=== PATIENT | female | born 1970 | race Caucasian/White ===

== ENCOUNTER 2017-01-29 11:05 | Day surgery (SDC) | payer BC, OTHER ==
[2017-01-22 07:55] VITALS: BMI 35.0
[~2017-01-29] VITALS: Ht 175.3 cm; Wt 108.2 kg
[~2017-01-29 11:05] MED LIST: AMLO-114 PO; ASCA500 PO; ATV1HP PO; CALC600T37 PO; CHOL1000 PO; CRFL PO; CYAN100020 PO; ESZO1TAB16 PO; EVEN1000 PO; LACTATED RINGER'S 1000ML 1,000 ML IV SCH; LISD60CA PO; MULT-506 PO; PRT/20 PO; QUET1TAB30 PO; VITA1TAB4 PO
[2017-01-29 11:37] VITALS: BP 126/70; PULSE 71; TEMP 36.9; O2SAT 98; Ht 175.3 cm; Wt 108.2 kg
[2017-01-29] MEDS ORDERED: FENTANYL CITRATE INJ 50 MCG/1 ML 2 ML VIAL ONE (12:41)
[2017-01-29] MEDS ORDERED: MIDAZOLAM HCL 1 MG/ML 2ML VIAL ONE (12:41)
[2017-01-29] MEDS ORDERED: ONDANSETRON INJ 2 MG/ML 2 ML VIAL IV STA (12:42)
[2017-01-29] MEDS ORDERED: ONDANSETRON INJ 2 MG/ML 2 ML VIAL ONE (12:42)
[2017-01-29] MEDS ORDERED: EpHEDrine SULFATE INJ 50 MG/ML AMP IV PRN (12:45)
[2017-01-29] MEDS ORDERED: ATROPINE SULFATE 0.1 MG/ML 5ML SYR IV PRN (12:45)
[2017-01-29] MEDS ORDERED: PROMETHAZINE HCL INJ 6.25 MG in SODIUM CHLORIDE 0.9% 50ML 50 ML IV PRN (12:45)
[2017-01-29] MEDS ORDERED: ONDANSETRON INJ 2 MG/ML 2 ML VIAL IV PRN ×2 (12:45→13:45)
--- NOTE | 2017-01-29 13:13 | History and Physical ---
History & Physical Date Jan 29, 2017. Chief Complaint pt years s/p gastric bypass for morbid obesity. has had an issue with chronic ulcers. was found several weeks ago with another ulcer and was considering reversal of her bypass b/c of recurrent ulcers. she wants my second opinion. she is having difficulty eating most days. lives on soft foods. frequent epigastric pain. 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 History of Present Illness The patient is a 46 year old female with complaints of Additional History Hypertension: Yes Heart Disease: Yes (arrythmia) Allergies Coded Allergies: Benzonatate (Verified Allergy, Severe, ANAPHYLACTIC SHOCK, 01/29/17) Morphine (Verified Allergy, Severe, ANAPHYLACTIC SHOCK, 01/29/17) Fentanyl (Verified Allergy, Intermediate, EXCESSIVE GI UPSET, 01/29/17) Latex1 -Allergic Contact Dermititis (Verified Allergy, Intermediate, REDNESS, BLISTERS, RASH, 01/29/17) Home Medications Scheduled Amlodipine (Norvasc), 10 MG PO QPM Ascorbic Acid (Vitamin C), 500 MG PO BID Calcium (Calcium), 600 MG PO BID Cholecalciferol (Vitamin D3), 1,000 UNIT PO BID Cyanocobalamin (Vitamin B12), 1,000 MCG PO BID Evening [place] Oil (Evening [place] Oil), 1 CAP PO QPM Lisdexamfetamine Dimesylate (Vyvanse), 60 MG PO QAM Multivitamin (Multivitamin), 1 TAB PO BID Pantoprazole (Protonix), 20 MG PO QAM Quetiapine Fumarate (Seroquel), 25 MG PO HS Sucralfate (Carafate), 10 ML PO BID Vitamin E (Vitamin E), 400 UNIT PO BID Scheduled PRN Eszopiclone (Lunesta), 3 MG PO HS PRN for Sleep Lorazepam (Lorazepam), 1 MG PO TID PRN for Anxiety Physical Examination Skin: warm/dry, no rash Eyes: EOMI, sclerae normal ENT: normal ENT inspection Head: normocephalic Neck: supple, no adenopathy, trachea midline Respiratory/Chest: normal breath sounds, no respiratory distress Cardiovascular: regular rate, rhythm Abdomen / GI: normal bowel sounds, + pertinent finding (+epigstric ttp) Extremities: normal inspection Diagnosis recurrent marginal ulcer agree reversal may help her will need to eval pouch size to see if reversal is even possible considering her multiple gastric surgeries cont carafate/protonix for now.
[2017-01-29] MEDS ORDERED: LIDOCAINE HCL 2% 2 ML VIAL (20MG/ML) ONE (13:22)
[2017-01-29] MEDS ORDERED: PROPOFOL IV EMULSION 10 MG/ML 20 ML VIAL IV ONE (13:22)
[2017-01-29] MEDS ORDERED: SODIUM CHLORIDE 0.9% 1000ML 1,000 ML IV SCH (13:37)
--- NOTE | 2017-01-29 13:42 | Discharge Instructions ---
Discharge Instructions Date of Service Jan 29, 2017. Admission Reason for Admission: Gastric Ulcers, History of Paulina-En-Y Gastric Bypas Discharge Discharge Diagnosis / Problem: marginal ulcers;recurrent Discharge Goals Goal(s): Decrease discomfort, Learn about illness, Diagnostic testing Activity Recommendations Activity Limitations: resume your previous activity Lifting Limitations: none . Current Hospital Diet Patient's current hospital diet: Discharge Diet Recommended Diet: Regular Diet Procedures Procedures Performed: Esophagogastroduodenoscopy Pending Studies Studies pending at discharge: no Medical Emergencies . Who to Call and When: Medical Emergencies: If at any time you feel your situation is an emergency, please call 911 immediately. . Non-Emergent Contact Non-Emergency issues call your: Primary Care Provider, Surgeon . "Provider Documentation" section prepared by Victor Manuel Arnold. . VTE Core Measure Inpt VTE Proph given/why not?: Treatment not indicated
--- NOTE | 2017-01-29 13:46 | [facility] Operative Report ---
Operative Report Operative Date Jan 29, 2017. Pre-Operative Diagnosis recurrent marginal ulcer Post-Operative Diagnosis recurrent marginal ulcer Procedure(s) Performed Esophagogastroduodenoscopy Surgeon Dr. Arnold Road Mender Surgeon(s) none Estimated Blood Loss 0 ml Findings small gastric pouch;marginal ulcer encompassing approx 50 % of anastomosis Specimens all specimens handled by endo staff Complication(s) None Disposition Recovery Room / PACU Description of Procedure After informed consent was obtained the patient was taken to the operating room and placed in supine position. IV sedation was administered and the patient was then placed in a left lateral Fowlers position. A bite block was placed. The gastroscope was inserted into the oropharynx and the proximal esophagus without difficulty. Keeping the lumen in view at all times the scope was passed down and the patient's gastric pouch. Anastomosis was open I was able go through it into the Paulina limb for about 15-20 cm. There was a moderate sized long blind limb. There was no stricture but there were 2 penetrating ulcers encompassing about 50% of the circumference of the anastomosis. No other gross abnormalities were identified. Esophagus appeared normal. The pouch was small but I do believe it would be possible to reverse her bypass. I decompressed the pouch withdrew the scope. The patient was awaken and transferred recovery in stable condition I attest to the content of the Intraoperative Record and any orders documented therein. Any exceptions are noted below.
--- NOTE | 2017-01-29 14:15 | Anesthesiology Progress Note ---
Anesthesia Post Op Note Date & Time Jan 29, 2017 at 14:15 Vital Signs Pain Intensity: 2 Vital Signs Past 12 Hours Date Time Temp Pulse Resp B/P (MAP) Pulse Ox O2 Delivery O2 Flow Rate FiO2 01/29/17 14:00 71 15 122/85 97 Room Air 01/29/17 13:50 75 18 127/91 95 Room Air 01/29/17 13:40 36.2 84 16 122/66 98 Oxymask 4 01/29/17 11:37 36.9 71 18 126/70 (88) 98 Room Air Notes Mental Status: alert / awake / arousable, participated in evaluation Pt Amnestic to Procedure: Yes Nausea / Vomiting: adequately controlled Pain: adequately controlled Airway Patency, RR, SpO2: stable & adequate BP & HR: stable & adequate Hydration State: stable & adequate Anesthetic Complications: no major complications apparent
[2017-01-29 14:25] VITALS: BP 118/67; PULSE 77; TEMP 36.9; O2SAT 96
[2017-01-29 14:55] VITALS: BP 120/79; PULSE 74; O2SAT 98
== END 2017-01-29 15:20 | disposition home or self-care (01) ==
LOC: C.ACU 11:05
PROVIDERS: ATTEND Surgery
DX: K25.3 Acute gastric ulcer without hemorrhage or perforation (principal); Z98.84 Bariatric surgery status; Z79.899 Other long term (current) drug therapy

== ENCOUNTER 2017-04-25 05:17 | Inpatient (IN) | payer BC ==
[2017-04-02 08:21] VITALS: BMI 32.0
[~2017-04-25] VITALS: Ht 177.8 cm; Wt 100.9 kg
[2017-04-25] VITALS (11 sets, daily range): BP systolic 111–175; BP diastolic 71–91; PULSE 61–86; TEMP 36.5–37; O2SAT 94–100; Ht 177.8 cm; Wt 100.9 kg
[~2017-04-25 05:17] MED LIST changes: +FERR325T5 PO; -LACTATED RINGER'S 1000ML 1,000 ML IV SCH; +VNTHFA/IN INH
[2017-04-25] MEDS ORDERED: HEPARIN SOD 5000 UNIT/0.5 ML CARP SQ SCH (06:00)
[2017-04-25] MEDS ORDERED: CEFAZOLIN 2000MG IV PUSH 15 ML IV SCH (06:00)
[2017-04-25] MEDS ORDERED: LACTATED RINGER'S 1000ML 1,000 ML IV SCH (06:00)
[2017-04-25] MEDS ORDERED: BUPIVACAINE/EPINEPHRINE 0.5% MPF 1:200,000 30 ML VIAL ONE (06:32)
[2017-04-25] MEDS: LACTATED RINGER'S 1000ML 1,000 ML IV SCH ×4 (06:33→23:56)
--- NOTE | 2017-04-25 06:51 | History & Physical Bridge Note ---
H&P Re-Evaluation Bridge Note: I have examined the patient, reviewed the History & Physical and in the interval since the performance of the History & Physical I have noted the following changes of clinical significance: No changes noted
[2017-04-25] MEDS ORDERED: FENTANYL CITRATE INJ 50 MCG/1 ML 2 ML VIAL ONE ×4 (06:52→10:33)
[2017-04-25] MEDS ORDERED: MIDAZOLAM HCL 1 MG/ML 2ML VIAL ONE (06:52)
[2017-04-25] MEDS ORDERED: PROPOFOL IV EMULSION 10 MG/ML 20 ML VIAL IV ONE (06:52)
[2017-04-25] MEDS ORDERED: ROCURONIUM BROMIDE 10 MG/ML 5 ML VIAL IV ONE ×2 (06:52→08:03)
[2017-04-25] MEDS ORDERED: LIDOCAINE HCL 2% 2 ML VIAL (20MG/ML) ONE (06:52)
[2017-04-25] MEDS ORDERED: ONDANSETRON INJ 2 MG/ML 2 ML VIAL ONE (08:03)
[2017-04-25] MEDS ORDERED: DEXAMETHASONE SOD INJ 4 MG/ML VIAL ONE (08:03)
[2017-04-25] MEDS ORDERED: HYDROmorphone INJ 2 MG/ML SYR/VIAL ONE ×2 (08:25→11:14)
[2017-04-25] MEDS ORDERED: ONDANSETRON INJ 2 MG/ML 2 ML VIAL IV PRN ×2 (10:15→11:45)
[2017-04-25] MEDS ORDERED: NALOXONE HCL 0.4 MG/1 ML VIAL/CARP IV PRN (10:15)
[2017-04-25] MEDS ORDERED: LABETALOL HCL IV 5 MG/ML 20ML IV PRN (10:15)
[2017-04-25] MEDS ORDERED: EpHEDrine SULFATE INJ 50 MG/ML AMP IV PRN (10:15)
[2017-04-25] MEDS ORDERED: FLUMAZENIL 0.1 MG/1 ML 10 ML VIAL IV PRN (10:15)
[2017-04-25] MEDS ORDERED: PROMETHAZINE HCL INJ 12.5 MG in SODIUM CHLORIDE 0.9% 50ML 50 ML IV PRN (10:15)
[2017-04-25] MEDS ORDERED: ATROPINE SULFATE 0.1 MG/ML 5ML SYR IV PRN (10:15)
[2017-04-25] MEDS ORDERED: SODIUM CHLORIDE 0.9% INJ 10 ML VIAL ONE (10:22)
[2017-04-25] MEDS ORDERED: KETAMINE HCL INJ 50 MG/ML 10 ML VIAL ONE (10:38)
--- NOTE | 2017-04-25 11:22 | [facility] Operative Report ---
Operative Report Operative Date Apr 25, 2017. Pre-Operative Diagnosis Recurrent marginal Ulcer Post-Operative Diagnosis Recurrent marginal Ulcer;gastroenteric fistula;adhesions Procedure(s) Performed Laparoscopic Revision/Reversal of Gastrojejunostomy; gastrogastrostomy; takedown of gastroenteric fistula; enteroenterostomy;partial small bowel resection; enterolysis; Intra-operative Esophagogastroduodenoscopy Surgeon Dr Arnold Manufacturing Associate Surgeon(s) Mathieu Luna PA-C Estimated Blood Loss 30CC Specimens None per surgeon Anesthesia Type General Complication(s) staple line/anastomotic leak intra-op I attest to the content of the Intraoperative Record and any orders documented therein. Any exceptions are noted below.
--- NOTE | 2017-04-25 11:35 | Medical Student: [facility] ---
Immediate Operative Summary Operative Date Apr 25, 2017. Pre-Operative Diagnosis recurrent marginal ulcer Post-Operative Diagnosis recurrent marginal ulcer, gastoenteric fistula, adhesions Procedure(s) Performed Laparoscopic revision/reversal of gastrojejunostomy with intra-operative EGD and partial bowel resection; removal of gastroenteric fistula; gastrogastrostomy, enteroenterostomy, enterolysis Surgeon Dr. Arnold Computer Typesetter Keyliner Surgeon(s) Mathieu Luna PA-C Estimated Blood Loss 30cc Findings previous Paulina-en-Y gastric bypass, adhesions, marginal ulcer Specimens A: portion of stomach B: portion of small bowel None sent to path per Dr. Arnold Drains 10 flat MELLY in LUQ Anesthesia general Complication(s) leak at 1 staple line and at anastomosis of stomach intraoperatively. Disposition Recovery Room / PACU
[2017-04-25] MEDS ORDERED: ESZOPICLONE 3 MG TAB PO PRN (11:45)
[2017-04-25] MEDS ORDERED: HYDROmorphone INJ 1 MG/ML SYR IV PRN (11:45)
[2017-04-25] MEDS ORDERED: ALBUTEROL HFA 8 GM INHALER INH PRN (11:45)
[2017-04-25] MEDS ORDERED: LORAZEPAM 2 MG/ML 1 ML VIAL IV PRN (11:45)
[2017-04-25] MEDS: HYDROmorphone INJ 1 MG/ML SYR IV PRN ×5 (11:54→13:22)
--- NOTE | 2017-04-25 12:18 | [facility] Operative Report ---
Operative Report Operative Date Apr 25, 2017. Pre-Operative Diagnosis recurrent marginal ulcers Post-Operative Diagnosis same with gastroenteric fistula; adhesions Procedure(s) Performed Laparoscopic Revision/Reversal of Gastrojejunostomy; gastrogastrostomy;takedown of gastroenteric fistula; enteroenterostomy;partial small bowelresection; enterolysis; Intra-operativeEsophagogastroduodenoscopy Surgeon Dr Arnold Mobile Equipment Servicer Surgeon(s) Mathieu Luna PA-C Estimated Blood Loss 30CC Specimens A. Portion of Stomach B. Portion of Small Bowel Drains 10 flat MELLY in LUQ Anesthesia Type General Complication(s) staple line/anastomotic leak intra-op Disposition Recovery Room / PACU Description of Procedure After informed consent was obtained the patient was taken to the operating room placed in supine position. After successful intubation a Love catheter was placed and the abdomen was sterilely prepped and draped in usual fashion. A supraumbilical incision through an old scar line was made with an 11 blade scalpel and carried down through the soft tissue using electrocautery. The anterior rectus fascia was opened using electrocautery and 2 #0 Vicryl stay sutures were placed. Peritoneum was elevated with hemostats and incised under direct vision using a Metzenbaum scissor. A finger sweep was performed. A 12 mm Vang trocar was placed and the abdomen was insufflated to 20 mmHg. The laparoscope was inserted and the abdomen examined 360. A subxiphoid 12 mm port which would later be converted to a 15 mm port, a right upper quadrant 12 mm port a right midabdominal 12 mm port and a left upper quadrant 12 mm port were all placed under direct vision. Considering her surgical history her anatomy was actually quite good. We used a liver retractor throughout the majority of the procedure. I was able to readily follow the Paulina limb up to the gastrojejunal anastomosis. It was however kinked in an abnormal fashion. 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 Nonetheless there was enough stomach remaining that I would be able to perform the gastrogastrostomy. I began by taking down adhesions in the upper abdomen involving the stomach small bowel. His was done using scissor lysis as well as Harmonic. Once we had freed up the stomach pouch I then initially attempted to use a purple cartridge stapler to transect the stomach proximal to the anastomosis. The tissue however was too thick. I converted to a black cartridge and was able to transect the stomach just proximal to her previous gastrojejunostomy. Once I had a completely stapled it off I then mobilized the Paulina limb and placed it in the left upper quadrant. Next we freed up the remaining gastric remnant. She did have her fundus resected previously so we basically had the distal part of the body and antrum remaining. Once I freed this up we were able to mobilize it enough to bring it up into the left upper quadrant near her gastric pouch. I sutured it with 2-0 vicryl to the gastric pouch to take tension off it. We then connected the anvil of the 21 mm circular stapler to an NG tube and anesthesia pass the tube into the gastric pouch. A small gastrotomy was made and I used the NG tube the pull the anvil down into the pouch. I disconnected the NG tube from the anvil, pulled it from the abdomen and discarded it. We then made a gastrotomy in the gastric remnant. We brought the handle of the EEA in through the left upper quadrant incision after extending it. We placed the handle into the gastrotomy and deployed the spike out through the lesser curvature side of the remaining stomach. The handle was connected to the anvil they were secured together and fired creating a circular gastro-gastric anastomosis. After removing the handle we were then able to staple off the gastrotomy using a DANISHA purple cartridge stapler. At the end of the case we did perform a methylene blue dye test which unfortunately did show 2 areas of leakage 1 at the anastomosis and one at one of the staple lines. both were anterior and were able to be easily oversewn using 2-0 Tycron in simple interrupted fashion. Once we had the small anastomotic area oversewn as well as the staple line we then retested it multiple times with methylene blue and at this point it was completely airtight with no evidence of leaking. We did cover the anastomosis as well as the staple lines with Tisseel glue. I then ran the Paulina limb down to the jejunojejunostomy. I was able to disconnect the biliary limb using a DANISHA peterson cartridge stapler. I then resected the proximal portion of the Paulina limb since it was still connected to the stomach as well as a blind limb. I used the Harmonic scalpel to take down the mesentery and set this portion of small bowel in the left upper quadrant along with the portion of stomach that was stapled off previously. I then performed a laparoscopic jejunojejunostomy from the proximal Paulina limb to the biliary limb. We closed the common enterotomy also using a DANISHA peterson stapler. I used 2- [address] a crotch stitch and also used 2-0 Tycron in simple interrupted fashion to close the mesenteric defect. The anastomosis looked good and tension free without any ischemia. At the end of the case both anastomosis were free of any leaks were intact without signs of ischemia. We did do a thorough irrigation of the upper abdomen. A 10 flat Eleazar-Williamson drain was placed in the left upper quadrant and brought out through a left upper quadrant incision. The fascia of that incision was also closed using 0 Vicryl with a fascial closure device. No other abnormalities were identified. An Endo Catch bag was placed and all 3 disposable portions of stomach and small bowel were placed into it and they were removed from the abdomen. We removed all the trochars and desufflated the abdomen. The fascia the camera port was closed using 0 Vicryl [id number] fashion. All the wounds were irrigated and closed using 4-0 Monocryl. Marcaine was injected around him for postoperative analgesia and skin glue used as a dressing. Patient was awaken extubated and transferred recovery in stable condition. My physician's geriatric assistant was present throughout the entire entire case. He helped with prepping the patient trocar placement he assisted with retraction ran the camera helped with wound closure and dressing placement the end of the case. He was an integral part of the procedure. I attest to the content of the Intraoperative Record and any orders documented therein. Any exceptions are noted below.
--- NOTE | 2017-04-25 12:48 | Anesthesiology Progress Note ---
Anesthesia Post Op Note Date & Time Apr 25, 2017 at 12:48 Vital Signs Pain Intensity: 4 Vital Signs Past 12 Hours Date Time Temp Pulse Resp B/P (MAP) Pulse Ox O2 Delivery O2 Flow Rate FiO2 04/25/17 12:30 36.2 70 20 148/82 98 Nasal Cannula 4 04/25/17 12:15 76 20 158/97 98 Nasal Cannula 4 04/25/17 12:05 78 20 138/98 100 Oxymask 10 04/25/17 11:55 90 20 160/101 100 Oxymask 10 04/25/17 11:45 92 20 161/83 100 Oxymask 10 04/25/17 11:39 36.6 102 20 122/58 100 Oxymask 10 04/25/17 05:56 36.6 77 18 156/77 99 Room Air Notes Mental Status: alert / awake / arousable, participated in evaluation Pt Amnestic to Procedure: Yes Nausea / Vomiting: adequately controlled Pain: adequately controlled Airway Patency, RR, SpO2: stable & adequate BP & HR: stable & adequate Hydration State: stable & adequate Anesthetic Complications: no major complications apparent
[2017-04-25] MEDS ORDERED: NURSING VERBAL MED ORDER ONE ×3 (13:00→16:45)
[2017-04-25] MEDS ORDERED: ONDANSETRON INJ 2 MG/ML 2 ML VIAL IV STA (13:08)
[2017-04-25] MEDS ORDERED: SCOPOLAMINE 1.5 MG TDSY TD ONE (13:15)
[2017-04-25] MEDS ORDERED: HYDROmorphone INJ 1 MG/ML SYR ONE (13:15)
[2017-04-25] MEDS: ACETAMINOPHEN IV 100 ML IV SCH ×2 (14:08→22:03)
[2017-04-25] MEDS: SODIUM CHLORIDE 0.9% 1000ML 1,000 ML IV SCH (15:30)
[2017-04-25] MEDS: VYVANSE: ORDER AWAITING ACTION SCH ×2 (16:00→23:54)
[2017-04-25] MEDS: CHECK SCOPOLAMINE PATCH PLACEMENT SCH ×2 (16:28→23:54)
[2017-04-25] MEDS ORDERED: HYDROmorphone INJ 1 MG/ML SYR IV STA (16:31)
[2017-04-25] MEDS ORDERED: HYDROmorphone INJ 2 MG/ML SYR/VIAL IV STA (16:42)
[2017-04-25] MEDS: HYDROmorphone HCL 0.5MG/ML 50 ML CASSETTE IV PRN ×2 (17:25→23:04)
[2017-04-25] MEDS: DiphenhydrAMINE HCL 50 MG/ML VIAL IV PRN (19:43)
[2017-04-25] MEDS: LORAZEPAM INJ 1 MG in SYRINGE 0.5 ML IV PRN (20:34)
[2017-04-25] MEDS: QUETIAPINE FUMARATE 25 MG TAB PO SCH (20:37)
[2017-04-25] MEDS: AMLODIPINE BESYLATE 5 MG TAB PO SCH (20:38)
[2017-04-26] VITALS (10 sets, daily range): BP systolic 132–176; BP diastolic 70–93; PULSE 60–92; TEMP 36.8–37.8; O2SAT 91–98
[2017-04-26 05:51] LABS: BASO % 0.2 %; BASO ABS # 0.03 K/uL (0-0.2); EOS % 0.7 %; EOS ABS # 0.09 K/uL (0-0.5); HEMOGLOBIN 11.3 g/dL (12.0-16.0); IG# 0.03 K/uL (0.00-0.02); LYMPH % 17.3 %; MEAN CELL VOLUME 88.8 fL (80-100); MEAN CORPUSCULAR HEMOGLOBIN 29.5 pg (25-34); MEAN CORPUSCULAR HGB CONC 33.2 g/dl (32-36); MEAN PLATELET VOLUME 11.2 fL (7.4-10.4); MONO % 6.2 %; MONO ABS # 0.75 K/uL (0.11-0.59); NEUT % 75.4 %; NEUT ABS # 9.12 K/uL (1.4-6.5); PLATELET COUNT 221 K/uL (130-400); RED CELL DISTRIBUTION WIDTH SD 45.3 fL (36.4-46.3); WHITE BLOOD COUNT 12.12 K/uL (4.8-10.8)
[2017-04-26] MEDS: ACETAMINOPHEN IV 100 ML IV SCH (05:51)
[2017-04-26 05:54] LABS: INR 1.1 (0.9-1.1); PTT PATIENT 24.9 SECONDS (21.0-31.0)
[2017-04-26 06:15] LABS: CALCIUM 8.3 mg/dl (8.5-10.1); CREATININE 0.52 mg/dl (0.60-1.20); POTASSIUM 3.4 mmol/L (3.5-5.1)
[2017-04-26] MEDS: VYVANSE: ORDER AWAITING ACTION SCH ×3 (07:38→23:42)
[2017-04-26] MEDS: CHECK SCOPOLAMINE PATCH PLACEMENT SCH ×3 (07:38→23:41)
[2017-04-26] MEDS: LACTATED RINGER'S 1000ML 1,000 ML IV SCH (07:38)
[2017-04-26] MEDS: PANTOprazole SOD 40 MG TAB PO SCH (09:02)
[2017-04-26] MEDS: ENOXAPARIN 40 MG/0.4 ML SYR SQ SCH (09:03)
[2017-04-26] MEDS: D5W AND 1/2NSS + 20MEQ KCL 1,000 ML IV SCH ×2 (10:00→17:52)
--- NOTE | 2017-04-26 11:17 | Anesthesiology Progress Note ---
Anesthesia Post Op Note Date & Time Apr 26, 2017 at 11:16 Vital Signs Pain Intensity: 8.0 Vital Signs Past 12 Hours Date Time Temp Pulse Resp B/P (MAP) Pulse Ox O2 Delivery O2 Flow Rate FiO2 04/26/17 08:00 Room Air 04/26/17 07:59 36.8 60 17 152/70 (97) 91 Room Air 04/26/17 04:03 37.0 71 14 155/84 (107) 95 Room Air 04/25/17 23:45 Room Air Notes Mental Status: alert / awake / arousable, participated in evaluation Pt Amnestic to Procedure: Yes Nausea / Vomiting: adequately controlled Pain: adequately controlled Airway Patency, RR, SpO2: stable & adequate BP & HR: stable & adequate Hydration State: stable & adequate Anesthetic Complications: no major complications apparent
[2017-04-26] MEDS: DiphenhydrAMINE HCL 50 MG/ML VIAL IV PRN ×2 (11:58→18:37)
--- NOTE | 2017-04-26 13:58 | Surgery Progress Note ---
Surgery Progress Note Date of Service Apr 26, 2017. Subjective Post OP Day: 1 + ambulating, + pain controlled (better), + using SHELL WORKER Objective Vital Signs: Date Time Temp Pulse Resp B/P (MAP) Pulse Ox O2 Delivery O2 Flow Rate FiO2 04/26/17 11:46 37.3 76 17 132/81 (98) 95 Room Air 04/26/17 08:00 Room Air 04/26/17 07:59 36.8 60 17 152/70 (97) 91 Room Air 04/26/17 04:03 37.0 71 14 155/84 (107) 95 Room Air 04/25/17 23:45 Room Air 04/25/17 23:16 36.9 61 14 129/74 (92) 94 Room Air 04/25/17 21:29 36.9 71 18 175/79 (111) 97 Room Air 04/25/17 20:30 37.0 70 18 147/91 (109) 95 Room Air 04/25/17 19:30 37.0 86 20 145/73 (97) 96 Room Air 04/25/17 18:30 36.9 84 18 146/78 (100) 96 Room Air 04/25/17 16:00 Nasal Cannula 2.0 04/25/17 15:42 36.5 74 18 138/84 (102) 98 Nasal Cannula 3.0 04/25/17 14:44 70 18 148/79 (102) 98 Nasal Cannula 2.0 Physical Exam: MELLY drainage (70 cc) Abdomen: soft Incision(s): intact (dressing) Laboratory Results: Results Past 24 Hours Test 04/26/17 05:24 Range/Units White Blood Count 12.12 4.8-10.8 K/uL Red Blood Count 3.83 4.2-5.4 M/uL Hemoglobin 11.3 12.0-16.0 g/dL Hematocrit 34.0 37-47 % Mean Corpuscular Volume 88.8 80-100 fL Mean Corpuscular Hemoglobin 29.5 25-34 pg Mean Corpuscular Hemoglobin Concent 33.2 32-36 g/dl Platelet Count 221 130-400 K/uL Mean Platelet Volume 11.2 7.4-10.4 fL Neutrophils (%) (Auto) 75.4 % Lymphocytes (%) (Auto) 17.3 % Monocytes (%) (Auto) 6.2 % Eosinophils (%) (Auto) 0.7 % Basophils (%) (Auto) 0.2 % Neutrophils # (Auto) 9.12 1.4-6.5 K/uL Lymphocytes # (Auto) 2.10 1.2-3.4 K/uL Monocytes # (Auto) 0.75 0.11-0.59 K/uL Eosinophils # (Auto) 0.09 0-0.5 K/uL Basophils # (Auto) 0.03 0-0.2 K/uL RDW Standard Deviation 45.3 36.4-46.3 fL RDW Coefficient of Variation 14.0 11.5-14.5 % Immature Granulocyte % (Auto) 0.2 % Immature Granulocyte # (Auto) 0.03 0.00-0.02 K/uL Prothrombin Time 11.1 9.0-12.0 SECONDS Prothromb Time International Ratio 1.1 0.9-1.1 Activated Partial Thromboplast Time 24.9 21.0-31.0 SECONDS Partial Thromboplastin Ratio 1.0 Sodium Level 137 136-145 mmol/L Potassium Level 3.4 3.5-5.1 mmol/L Chloride Level 105 98-107 mmol/L Carbon Dioxide Level 27 21-32 mmol/L Anion Gap 5.0 3-11 mmol/L Blood Urea Nitrogen 10 7-18 mg/dl Creatinine 0.52 0.60-1.20 mg/dl Est Creatinine Clear Calc Drug Dose 170.2 ml/min Estimated GFR () 130.9 Estimated GFR (Non- 113.0 BUN/Creatinine Ratio 18.7 10-20 Random Glucose 105 70-99 mg/dl Calcium Level 8.3 8.5-10.1 mg/dl Assessment & Plan Laparoscopic Revision/Reversal of Gastrojejunostomy doing well keep on ice chips cont SHELL WORKER will supplement K+ in maintenance IVF seen by Dr. Arnold
[2017-04-26] MEDS: SODIUM CHLORIDE 0.9% 1000ML 1,000 ML IV SCH (15:30)
--- NOTE | 2017-04-26 16:45 | DIAGNOSTIC IMAGING REPORT ---
CHEST ONE VIEW PORTABLE CLINICAL HISTORY: 46 years-old Female presenting with chest pain, SOB, recurrent gastric ulcers. TECHNIQUE: Portable upright AP view of the chest was obtained. COMPARISON: None. FINDINGS: Cardiomediastinal silhouette normal. Lungs and pleural spaces clear. Osseous structures normal. A Eleazar-Williamson drain is partially visualized in the epigastrium. IMPRESSION: 1. No acute cardiopulmonary disease. Electronically signed by: Dale Zarate M.D. 04/26/2017 4:43 PM Dictated Date/Time: 04/26/2017 4:43 PM
--- NOTE | 2017-04-26 17:03 | Medical Student: [facility] ---
Med Student Progress Note Date of Service Apr 26, 2017. Subjective Pt evaluation today including: conversation w/ patient, conversation w/ family , physical exam, chart review Pain: tolerable, on THRILL PERFORMER. Some left shoulder pain. PO Intake: ice chips Voiding: no voiding problems Rosita Warner is post-op day 1 of a paulina-en-Y reversal/revision. She is doing well. She reports some pain at her LUQ incision, which is controlled with her THRILL PERFORMER as well as some left shoulder pain. She is ambulating and in a good mood. Review of Systems Constitutional: No fever, No chills ENT: No hearing loss Respiratory: No cough Cardiac: No chest pain Abdomen: + see HPI, + pain, No nausea, No vomiting, No diarrhea, No constipation Female : No dysuria, No incontinence Neurologic: No memory loss Psychiatric: No depression symptoms Heme: No abnormal bleeding/bruising Skin: No rash Objective Vital Signs Date Time Temp Pulse Resp B/P (MAP) Pulse Ox O2 Delivery O2 Flow Rate FiO2 04/26/17 15:59 84 24 165/93 (117) 98 Room Air 04/26/17 14:53 37.2 82 18 150/82 (104) 94 Room Air 04/26/17 11:46 37.3 76 17 132/81 (98) 95 Room Air 04/26/17 08:00 Room Air 04/26/17 07:59 36.8 60 17 152/70 (97) 91 Room Air 04/26/17 04:03 37.0 71 14 155/84 (107) 95 Room Air 04/25/17 23:45 Room Air 04/25/17 23:16 36.9 61 14 129/74 (92) 94 Room Air 04/25/17 21:29 36.9 71 18 175/79 (111) 97 Room Air 04/25/17 20:30 37.0 70 18 147/91 (109) 95 Room Air 04/25/17 19:30 37.0 86 20 145/73 (97) 96 Room Air 04/25/17 18:30 36.9 84 18 146/78 (100) 96 Room Air Physical Exam General Appearance: WD/WN, no apparent distress Eyes: bilateral eyes normal inspection, bilateral eyes EOMI ENT: hearing grossly normal Neck: supple Respiratory/Chest: no respiratory distress, no accessory muscle use Cardiovascular: no edema Abdomen: soft, + pertinent finding (incisions covered dressings, MELLY drain contained 70cc) Extremities: normal inspection Neurologic/Psychiatric: alert, normal mood/affect, oriented x 3 Skin: normal color, warm/dry, no rash Laboratory Results Last 24 Hours Test 04/26/17 05:24 White Blood Count 12.12 K/uL Red Blood Count 3.83 M/uL Hemoglobin 11.3 g/dL Hematocrit 34.0 % Mean Corpuscular Volume 88.8 fL Mean Corpuscular Hemoglobin 29.5 pg Mean Corpuscular Hemoglobin Concent 33.2 g/dl Platelet Count 221 K/uL Mean Platelet Volume 11.2 fL Neutrophils (%) (Auto) 75.4 % Lymphocytes (%) (Auto) 17.3 % Monocytes (%) (Auto) 6.2 % Eosinophils (%) (Auto) 0.7 % Basophils (%) (Auto) 0.2 % Neutrophils # (Auto) 9.12 K/uL Lymphocytes # (Auto) 2.10 K/uL Monocytes # (Auto) 0.75 K/uL Eosinophils # (Auto) 0.09 K/uL Basophils # (Auto) 0.03 K/uL RDW Standard Deviation 45.3 fL RDW Coefficient of Variation 14.0 % Immature Granulocyte % (Auto) 0.2 % Immature Granulocyte # (Auto) 0.03 K/uL Prothrombin Time 11.1 SECONDS Prothromb Time International Ratio 1.1 Activated Partial Thromboplast Time 24.9 SECONDS Partial Thromboplastin Ratio 1.0 Sodium Level 137 mmol/L Potassium Level 3.4 mmol/L Chloride Level 105 mmol/L Carbon Dioxide Level 27 mmol/L Anion Gap 5.0 mmol/L Blood Urea Nitrogen 10 mg/dl Creatinine 0.52 mg/dl Est Creatinine Clear Calc Drug Dose 170.2 ml/min Estimated GFR () 130.9 Estimated GFR (Non- 113.0 BUN/Creatinine Ratio 18.7 Random Glucose 105 mg/dl Calcium Level 8.3 mg/dl Assessment and Plan Assessment and Plan: Rosita Warner is a 46 yo female who is post-op day 1 for a Paulina-en-Y reversal/ revision for her history of recurrent marginal ulcers. She is doing well today , ambulating, and in good spirits with pain controlled with THRILL PERFORMER. Her left shoulder pain is likely due to CO2 gas used during surgery. Plan: - Ice chip diet until Saturday after a blue dye test, when she will advance to a liquid diet. - Upper GI series scheduled for Saturday. - Encourage ambulation - Continue THRILL PERFORMER for pain and IVF fluids. Continued [facility] stay due to: inadequate po fluid intake Discharge planning: home
[2017-04-26] MEDS: LORAZEPAM INJ 1 MG in SYRINGE 0.5 ML IV PRN (17:46)
[2017-04-26] MEDS ORDERED: FAMOTIDINE IV INJ 20 MG in DEXTROSE 5% 100ML 100 ML IV ONE (20:30)
[2017-04-26] MEDS: QUETIAPINE FUMARATE 25 MG TAB PO SCH (21:26)
[2017-04-26] MEDS: AMLODIPINE BESYLATE 5 MG TAB PO SCH (21:26)
[2017-04-26] MEDS: HYDROmorphone HCL 0.5MG/ML 50 ML CASSETTE IV PRN (23:17)
[2017-04-27] VITALS (7 sets, daily range): BP systolic 112–138; BP diastolic 65–83; PULSE 69–92; TEMP 37.2–38; O2SAT 92–97
[2017-04-27] MEDS ORDERED: NURSING DECISION MEDICATION ORDER SCH (02:00)
[2017-04-27] MEDS: D5W AND 1/2NSS + 20MEQ KCL 1,000 ML IV SCH ×3 (04:58→20:37)
[2017-04-27] MEDS: DiphenhydrAMINE HCL 50 MG/ML VIAL IV PRN (07:47)
[2017-04-27] MEDS: CHECK SCOPOLAMINE PATCH PLACEMENT SCH ×2 (07:47→15:55)
[2017-04-27] MEDS: ENOXAPARIN 40 MG/0.4 ML SYR SQ SCH (07:47)
[2017-04-27] MEDS: VYVANSE: ORDER AWAITING ACTION SCH ×2 (07:47→15:43)
[2017-04-27] MEDS: PANTOprazole SOD 40 MG TAB PO SCH (07:48)
[2017-04-27 07:52] LABS: BASO % 0.2 %; BASO ABS # 0.02 K/uL (0-0.2); EOS % 2.9 %; HEMATOCRIT 31.7 % (37-47); HEMOGLOBIN 10.5 g/dL (12.0-16.0); IG# 0.02 K/uL (0.00-0.02); LYMPH ABS # 1.54 K/uL (1.2-3.4); MEAN CELL VOLUME 90.3 fL (80-100); MEAN CORPUSCULAR HEMOGLOBIN 29.9 pg (25-34); MEAN CORPUSCULAR HGB CONC 33.1 g/dl (32-36); MEAN PLATELET VOLUME 11.1 fL (7.4-10.4); MONO % 9.2 %; MONO ABS # 0.94 K/uL (0.11-0.59); NEUT % 72.5 %; NEUT ABS # 7.44 K/uL (1.4-6.5); PLATELET COUNT 180 K/uL (130-400); RED CELL DISTRIBUTION WIDTH CV 14.2 % (11.5-14.5); WHITE BLOOD COUNT 10.26 K/uL (4.8-10.8)
[2017-04-27 08:27] LABS: CALCIUM 8.5 mg/dl (8.5-10.1); CREATININE 0.47 mg/dl (0.60-1.20); POTASSIUM 3.3 mmol/L (3.5-5.1)
--- NOTE | 2017-04-27 08:54 | Medical Consult ---
Consultation Date of Consultation: Apr 27, 2017. Attending Physician: Victor Manuel Arnold D.O. Reason for Consultation: Medical Management History of Present Illness This is a 46 yo F with PMHx chronic malabsorptive iron deficiency anemia, GERD, hx of Paulina-en-Y gastric bypass 2010 with multiple revisions due to gastric ulcers, HTN, possible IBS prior to any abdominal surgeries and asthma. She underwent Laparoscopic Revision/Reversal of Gastrojejunostomy; gastrogastrostomy ; takedown of gastroenteric fistula; enteroenterostomy; partial small bowel resection; enterolysis; Intra-operative EGD by Dr. Arnold on 04/25/17. She has been on a dilaudid ORNAMENTAL PLASTERER HELPER for pain control. The patient was seen and examined this morning. She reports multiple complaints including feeling itchy all over despite benadryl administration, fatigue, frontal headache, increased irritability today, and nausea. She is having abdominal pain which is extending around the left side into her back which is also new. She has tolerated minimal food intake, and reports this is an ongoing issue for her since 2010 with her first gastric bypass. She typically eat one small snack daily, and drinks water/juice/gingerale as she is able. Sometimes it is 3 days before she actually eats a meal. In the past dietary supplements have been suggested by multiple providers, but she tells me "if I see another protein drink I'll throw it at the wall". She notes being up and walking this morning, and has emptied her own MELLY drain. The patient notes she did not take her ativan last evening, and typically uses 2.5 mg QHS because she has severe anxiety. She uses this same dosage during the day as needed, when asked how often she is unable to tell me what her dosing on the bottle is, but says "maybe twice daily". 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[place]) Allergies Coded Allergies: Benzonatate (Verified Allergy, Severe, ANAPHYLACTIC SHOCK, 04/25/17) Morphine (Verified Allergy, Severe, ANAPHYLACTIC SHOCK, 04/25/17) Fentanyl (Verified Allergy, Intermediate, EXCESSIVE GI UPSET, 04/25/17) Latex1 -Allergic Contact Dermititis (Verified Allergy, Intermediate, REDNESS, BLISTERS, RASH, 04/25/17) Current Inpatient Medications Current Inpatient Medications Medications (Trade) Dose Ordered Sig/Celina Route Start Time Stop Time Status Last Admin Dose Admin Ondansetron HCl (Zofran Inj) 4 mg Q6H PRN IV 04/25/17 11:45 05/25/17 11:44 04/26/17 16:12 4 MG Enoxaparin Sodium (Lovenox Inj) 40 mg Q24H SQ 04/26/17 09:00 05/26/17 08:59 04/27/17 07:47 40 MG Albuterol (Ventolin Hfa Inhaler) 2 puffs Q6H PRN INH 04/25/17 11:45 05/25/17 11:44 Amlodipine Besylate (Norvasc Tab) 10 mg QPM PO 04/25/17 21:00 05/25/17 20:59 04/26/17 21:26 10 MG Eszopiclone (Lunesta Tab) 3 mg HS PRN PO 04/25/17 11:45 05/25/17 11:44 Quetiapine Fumarate (seroQUEL TAB) 25 mg HS PO 04/25/17 21:00 05/25/17 20:59 04/26/17 21:26 25 MG Miscellaneous Information (Order Awaiting Action) 1 ea QS N/A 04/25/17 16:00 05/25/17 15:59 Pantoprazole Sodium (Protonix Tab) 40 mg QAM PO 04/26/17 09:00 05/26/17 08:59 04/27/17 07:48 40 MG Miscellaneous (Remove Transderm-Scop Patch) 1 ea ONE ONCE N/A 04/28/17 13:15 04/28/17 13:16 Miscellaneous Information (Check Scopolamine Patch Placement) 1 ea QS N/A 04/25/17 16:00 04/28/17 13:15 04/27/17 07:47 1 EA Lorazepam 1 mg/ Syringe 1 ml @ 1 mls/min Q4H PRN IV 04/25/17 13:30 05/25/17 13:29 04/26/17 17:46 1 MLS/MIN Hydromorphone HCl (Dilaudid Installer Interior Assemblies) 25 mg PRN PRN IV 04/25/17 15:30 05/09/17 15:29 04/26/17 23:17 25 MG Sodium Chloride 1,000 ml @ 15 mls/hr Q24H IV 04/25/17 15:30 05/25/17 15:29 Diphenhydramine HCl (Benadryl Inj) 25 mg Q6H PRN IV 04/25/17 15:30 05/25/17 15:29 04/27/17 07:47 25 MG Potassium Chloride/Dextrose/ Sod Cl 1,000 ml @ 125 mls/hr Q8H IV 04/26/17 10:00 05/26/17 09:59 04/27/17 04:58 125 MLS/HR Review of Systems Constitutional: + fatigue, + problem reported (headache), No fever, No chills, No sweats, No weight loss Eyes: No worsening of vision, No diplopia ENT: No nasal symptoms, No sore throat, No trouble swallowing Respiratory: No cough, No shortness of breath, No dyspnea on exertion, No dyspnea at rest Cardiovascular: No chest pain, No edema, No palpitations Abdomen: + pain, + nausea, No vomiting, No diarrhea, No constipation, No GI bleeding Musculoskeletal: + joint pain, + problem reported (Left sided flank pain extending to back) Genitourinary - Female: No dysuria Neurologic: No memory loss, No numbness/tingling, No balance problems Psychiatric: + depression symptoms, + anxiety Endocrine: + fatigue Integumentary: No rash, No itch Physical Exam Date Time Temp Pulse Resp B/P (MAP) Pulse Ox O2 Delivery O2 Flow Rate FiO2 04/27/17 08:11 37.8 88 17 125/81 (96) 97 Room Air 04/27/17 03:43 37.6 87 15 138/83 (101) 95 Room Air 04/26/17 23:35 37.3 88 16 132/84 (100) 97 Room Air 04/26/17 23:35 Room Air 04/26/17 21:23 84 168/90 (116) 94 Room Air 04/26/17 19:44 37.8 149/80 (103) 96 Room Air 04/26/17 19:04 37.8 92 18 176/83 (114) 97 Room Air 04/26/17 17:22 156/82 (106) 04/26/17 15:59 84 24 165/93 (117) 98 Room Air 04/26/17 15:30 Room Air 04/26/17 14:53 37.2 82 18 150/82 (104) 94 Room Air 04/26/17 11:46 37.3 76 17 132/81 (98) 95 Room Air General Appearance: WD/WN, no apparent distress, + pertinent finding (darkened room, tv off) Head: normocephalic, atraumatic Eyes: PERRL, EOMI ENT: hearing grossly normal, pharynx normal Neck: supple, no JVD Respiratory/Chest: lungs clear, no respiratory distress, no accessory muscle use Cardiovascular: regular rate, rhythm, no murmur, normal peripheral pulses Abdomen/GI: soft, + pertinent finding (+ NABS x 4 quad, Incisions appear intact. Dressing over LUQ appears c/d/i. + tenderness with palpation in the epigastric region, LUQ extending around the left flank. ) Back: no CVA tenderness, + muscle spasm (Left infrascapular region, +left sided paraspinal muscles, ) Extremities/Musculoskelatal: normal inspection, no pedal edema, normal range of motion Neurologic/Psych: alert, oriented x 3, + pertinent finding (mood is slightly flat and irritable) Skin: normal color, warm/dry Laboratory Results Last 24 Hours Test 04/26/17 21:22 04/27/17 07:18 Troponin I < 0.015 ng/ml White Blood Count 10.26 K/uL Red Blood Count 3.51 M/uL Hemoglobin 10.5 g/dL Hematocrit 31.7 % Mean Corpuscular Volume 90.3 fL Mean Corpuscular Hemoglobin 29.9 pg Mean Corpuscular Hemoglobin Concent 33.1 g/dl Platelet Count 180 K/uL Mean Platelet Volume 11.1 fL Neutrophils (%) (Auto) 72.5 % Lymphocytes (%) (Auto) 15.0 % Monocytes (%) (Auto) 9.2 % Eosinophils (%) (Auto) 2.9 % Basophils (%) (Auto) 0.2 % Neutrophils # (Auto) 7.44 K/uL Lymphocytes # (Auto) 1.54 K/uL Monocytes # (Auto) 0.94 K/uL Eosinophils # (Auto) 0.30 K/uL Basophils # (Auto) 0.02 K/uL RDW Standard Deviation 47.0 fL RDW Coefficient of Variation 14.2 % Immature Granulocyte % (Auto) 0.2 % Immature Granulocyte # (Auto) 0.02 K/uL Sodium Level 138 mmol/L Potassium Level 3.3 mmol/L Chloride Level 104 mmol/L Carbon Dioxide Level 27 mmol/L Anion Gap 7.0 mmol/L Blood Urea Nitrogen 6 mg/dl Creatinine 0.47 mg/dl Est Creatinine Clear Calc Drug Dose 188.3 ml/min Estimated GFR () 135.4 Estimated GFR (Non- 116.8 BUN/Creatinine Ratio 11.9 Random Glucose 95 mg/dl Calcium Level 8.5 mg/dl Assessment & Plan PMHx chronic malabsorptive iron deficiency anemia, GERD, hx of Paulina-en-Y gastric bypass 2010 with multiple revisions due to gastric ulcers, HTN and possible IBS prior to any abdominal surgeries. She underwent Laparoscopic Revision/Reversal of Gastrojejunostomy; gastrogastrostomy; takedown of gastroenteric fistula; enteroenterostomy; partial small bowel resection; enterolysis; Intra-operative EGD S/p Reveral of Paulina-en-Y by Dr. Arnold on 04/25/17 - She has been on a dilaudid ORNAMENTAL PLASTERER HELPER for pain control, no basal, allowed 0.25 mg Q10 lockout, patient has been maxing out dosing per nursing - PT/OT on board - pt ambulating well after surgery - Antiemetics on board - NPO currently with fluids - diet per primary team - Protein supplement encouraged however pt not agreeable currently. - possible that dilaudid is causing itchiness, Benadryl on board - will switch from IV to PO as this will have a longer effect and avoid potential intermittent high. Muscle Spasm of paraspinal muscles, left - Use ice and heat for 20 min on and off to help alleviate pain. - Will also trial flexeril 5 mg BID prn for spasms Hypokalemia - K+ 3.4, replaced with 40 meq PO this morning - possible that this affected her nausea. Follow am labs Anxiety ADD Insomnia - Pt follows with Jm Lake, psychiatry in [place] and is prescribed medications by her - Continue on Vyvanse 60 mg QAM for ADD - Ativan reported as 2.5 mg PO HS and then during the day as needed however she cannot tell me exact dosing. Outpatient dosing says 1 mg PO HS and TID prn. While here in hospital pt allowed ativan 1 mg IV Q4H prn anxiety. - Continue Lunesta 3 mg HS and seroquel 25 mg HS for sleep HTN - Continue on amlodipine 10 mg - EKGs reviewed - Last dejan scan done Mar 2014 without acute abnormalities. Consult was placed for chest pressure and hx of vtach although pt denies any cardiac sx at this time. Asthma - Stable, last flare was >1 yr ago. Has advair inhaler, and albuteral nebulizer at home when needed. CODE STATUS: FULL CODE Disposition: From home, dc per primary team. Thank you for the consult on Ms. Warner, we will follow along. Reviewed: Pt Seen/Exam by Me History Physician Mechanical Press Operator supervision Note: I interviewed and examined the patient. Discussed with MARGARET Wilson and agree with findings and plan as documented in the note. Any exceptions or clarifications are listed here: Patient is a 46-year-old female here status post reversal of Paulina-en-Y gastric bypass with a history of recurrent marginal ulcers. Medical hospitalist service was consulted last evening for chest pain and pressure. Patient reports at that time she was having left-sided pressure as well as burning in the chest that radiated down through the abdomen. Her ECG was normal and her troponin was negative. She continues to have constant left shoulder pain which the surgeon told her is likely from the CO2 gas from the insufflation. She also continues to have intermittent left chest wall pain that is in the anterior to mid axillary line and is tender to palpation. She is still having some occasional burning with acid brash into the back of her throat. She does feel the IV Pepcid has helped. She has a low-grade temperature several times last 24 hours and she was encouraged to use her incentive spirometer more often. No urinary symptoms. Vitals reviewed Overweight Gen: AAOx3, NAD HEENT: anicteric sclerae, EOMI CV: RRR no mgr nl S1S2, positive exquisite tenderness to palpation in the left intercostal region in the mid to anterior axillary region Pulm: CTAB no wcr, with decreased breath sounds at the bases bilaterally Abd: +BS soft positive diffuse mild tenderness to palpation but is soft, no guarding or rebound tenderness, incisions are with Dermabond and there is no surrounding erythema, no drainage, nondistended Ext: no edema, 2+ DP pulses, no calf tenderness, negative Homans sign Skin: no rashes, warm/dry Patient is a 46-year-old female here status post reversal of Paulina-en-Y gastric bypass surgery along with other complex bowel resection and enterotomies. -Having some expected postoperative pain, no concern for acute coronary syndrome at this time -Blood pressures are improved -Continue Benadryl as needed for itching which may be from the Dilaudid ORNAMENTAL PLASTERER HELPER, but patient does not think it is -Trial of Flexeril as needed for muscular pain -We will follow along with you -Thank you for this consultation Documented By: Isabella Dukes
[2017-04-27] MEDS ORDERED: POTASSIUM CITRATE 10 MEQ TAB PO ONE (09:30)
[2017-04-27] MEDS: SODIUM CHLORIDE 0.9% 1000ML 1,000 ML IV SCH (12:47)
[2017-04-27] MEDS ORDERED: NURSING VERBAL MED ORDER ONE (16:30)
[2017-04-27] MEDS: FAMOTIDINE IV INJ 20 MG in SYRINGE 3 ML IV PRN (17:09)
[2017-04-27] MEDS: HYDROmorphone HCL 0.5MG/ML 50 ML CASSETTE IV PRN (19:11)
[2017-04-27] MEDS: ACETAMINOPHEN 325 MG TAB PO PRN (19:23)
--- NOTE | 2017-04-27 19:31 | Surgery Progress Note ---
Surgery Progress Note Date of Service Apr 27, 2017. Subjective Post OP Day: 2 having expected pain, otherwise no new complaints Objective Vital Signs: Date Time Temp Pulse Resp B/P (MAP) Pulse Ox O2 Delivery O2 Flow Rate FiO2 04/27/17 19:00 38.0 92 18 112/65 (81) 92 Room Air 04/27/17 15:40 Room Air 04/27/17 15:32 37.5 83 18 116/75 (89) 93 Room Air 04/27/17 11:29 37.3 69 18 129/71 (90) 96 Room Air 04/27/17 08:11 37.8 88 17 125/81 (96) 97 Room Air 04/27/17 08:00 Room Air 04/27/17 03:43 37.6 87 15 138/83 (101) 95 Room Air 04/26/17 23:35 37.3 88 16 132/84 (100) 97 Room Air 04/26/17 23:35 Room Air 04/26/17 21:23 84 168/90 (116) 94 Room Air 04/26/17 19:44 37.8 149/80 (103) 96 Room Air General Appearance: no apparent distress Respiratory/Chest: no respiratory distress, no accessory muscle use Abdomen: soft, + pertinent finding (MELLY serous. incisions look good. ) Incision(s): clean, dry, intact Laboratory Results: Results Past 24 Hours Test 04/26/17 21:22 04/27/17 07:18 Range/Units Troponin I < 0.015 0-0.045 ng/ml White Blood Count 10.26 4.8-10.8 K/uL Red Blood Count 3.51 4.2-5.4 M/uL Hemoglobin 10.5 12.0-16.0 g/dL Hematocrit 31.7 37-47 % Mean Corpuscular Volume 90.3 80-100 fL Mean Corpuscular Hemoglobin 29.9 25-34 pg Mean Corpuscular Hemoglobin Concent 33.1 32-36 g/dl Platelet Count 180 130-400 K/uL Mean Platelet Volume 11.1 7.4-10.4 fL Neutrophils (%) (Auto) 72.5 % Lymphocytes (%) (Auto) 15.0 % Monocytes (%) (Auto) 9.2 % Eosinophils (%) (Auto) 2.9 % Basophils (%) (Auto) 0.2 % Neutrophils # (Auto) 7.44 1.4-6.5 K/uL Lymphocytes # (Auto) 1.54 1.2-3.4 K/uL Monocytes # (Auto) 0.94 0.11-0.59 K/uL Eosinophils # (Auto) 0.30 0-0.5 K/uL Basophils # (Auto) 0.02 0-0.2 K/uL RDW Standard Deviation 47.0 36.4-46.3 fL RDW Coefficient of Variation 14.2 11.5-14.5 % Immature Granulocyte % (Auto) 0.2 % Immature Granulocyte # (Auto) 0.02 0.00-0.02 K/uL Sodium Level 138 136-145 mmol/L Potassium Level 3.3 3.5-5.1 mmol/L Chloride Level 104 98-107 mmol/L Carbon Dioxide Level 27 21-32 mmol/L Anion Gap 7.0 3-11 mmol/L Blood Urea Nitrogen 6 7-18 mg/dl Creatinine 0.47 0.60-1.20 mg/dl Est Creatinine Clear Calc Drug Dose 188.3 ml/min Estimated GFR () 135.4 Estimated GFR (Non- 116.8 BUN/Creatinine Ratio 11.9 10-20 Random Glucose 95 70-99 mg/dl Calcium Level 8.5 8.5-10.1 mg/dl Assessment & Plan POD 2 overall doing ok will give blue dye test tomorrow tentatively plan d/c saturday if she continues to do well
[2017-04-27] MEDS: AMLODIPINE BESYLATE 5 MG TAB PO SCH (20:37)
[2017-04-27] MEDS: QUETIAPINE FUMARATE 25 MG TAB PO SCH (20:37)
[2017-04-27] MEDS: LORAZEPAM INJ 1 MG in SYRINGE 0.5 ML IV PRN (21:36)
[2017-04-28] VITALS (8 sets, daily range): BP systolic 82–127; BP diastolic 50–79; PULSE 71–94; TEMP 36.9–37.5; O2SAT 95–100
[2017-04-28] MEDS: CHECK SCOPOLAMINE PATCH PLACEMENT SCH ×2 (00:04→07:48)
[2017-04-28] MEDS: D5W AND 1/2NSS + 20MEQ KCL 1,000 ML IV SCH ×3 (04:25→21:13)
[2017-04-28 06:07] LABS: BASO % 0.3 %; BASO ABS # 0.03 K/uL (0-0.2); EOS % 4.5 %; EOS ABS # 0.42 K/uL (0-0.5); HEMATOCRIT 30.1 % (37-47); IG# 0.01 K/uL (0.00-0.02); LYMPH % 20.6 %; LYMPH ABS # 1.92 K/uL (1.2-3.4); MEAN CELL VOLUME 90.7 fL (80-100); MEAN CORPUSCULAR HEMOGLOBIN 30.1 pg (25-34); MEAN CORPUSCULAR HGB CONC 33.2 g/dl (32-36); MEAN PLATELET VOLUME 10.7 fL (7.4-10.4); MONO % 8.2 %; MONO ABS # 0.76 K/uL (0.11-0.59); NEUT % 66.3 %; NEUT ABS # 6.17 K/uL (1.4-6.5); PLATELET COUNT 191 K/uL (130-400); RED CELL DISTRIBUTION WIDTH CV 14.2 % (11.5-14.5); RED CELL DISTRIBUTION WIDTH SD 47.2 fL (36.4-46.3); WHITE BLOOD COUNT 9.31 K/uL (4.8-10.8)
[2017-04-28 06:40] LABS: CALCIUM 8.3 mg/dl (8.5-10.1); CREATININE 0.53 mg/dl (0.60-1.20); POTASSIUM 3.6 mmol/L (3.5-5.1)
--- NOTE | 2017-04-28 07:24 | Hospitalist Progress Note ---
Hospitalist Progress Note Date of Service Apr 28, 2017. (Letty Wilson PA-C) Subjective Pt evaluation today including: conversation w/ patient, physical exam, chart review, lab review, review of studies Pain: Improving abdominal pain PO Intake: Fair Voiding: no voiding problems The patient was seen and examined this morning. Patient reports feeling slightly better today compared to yesterday. She has been up and ambulating about the room to the bathroom. +tired today. She reports her nausea is much better controlled today and has been able to tolerate small sips and liquids without difficulty. She is passing gas, no bowel movement yet. She denies any itching. The patient is requiring the Dilaudid MANAGER REGIONAL prior and after any ambulation. Discussion was held regarding encouragement of trying her best to use the Dilaudid MANAGER REGIONAL less, in anticipation for discharge to home possibly tomorrow per general surgery's note. ROS: Constitutional: No fever, sweats or chills Eyes: No diplopia, no worsening or blurred vision ENT: normal hearing, no trouble swallowing Respiratory: No cough, sputum, dyspnea at rest or on exertion Cardiovascular: No chest pain, tightness or palpitations Abdomen: See HPI Musculoskeletal: No joint pain, calf pain, swelling Neurologic: No weakness, numbness/tingling, or balance problems Psychiatric: + anxiety, chronic insomnia, difficulty with falling/staying asleep. Skin: No rash or itch (Letty Wilson PA-C) Objective Vital Signs Date Time Temp Pulse Resp B/P (MAP) Pulse Ox O2 Delivery O2 Flow Rate FiO2 04/28/17 03:38 119/79 (92) 04/28/17 02:34 37.3 88 14 82/50 (61) 95 Room Air 89/59 (69) 04/27/17 23:35 Room Air 04/27/17 23:07 37.2 83 18 119/74 (89) 92 Room Air 04/27/17 20:40 37.5 04/27/17 19:00 38.0 92 18 112/65 (81) 92 Room Air 04/27/17 15:40 Room Air 04/27/17 15:32 37.5 83 18 116/75 (89) 93 Room Air 04/27/17 11:29 37.3 69 18 129/71 (90) 96 Room Air 04/27/17 08:11 37.8 88 17 125/81 (96) 97 Room Air 04/27/17 08:00 Room Air (Letty Wilson PA-C) Physical Exam Notes: General Appearance: WD/WN, no apparent distress, appears better today brighter affect, washed up and make up on. Head: normocephalic, atraumatic Eyes: PERRL, EOMI ENT: hearing grossly normal, pharynx normal Neck: supple, no JVD Respiratory/Chest: lungs clear, no respiratory distress, no accessory muscle use Cardiovascular: regular rate, rhythm, no murmur, normal peripheral pulses Abdomen/GI: soft, + pertinent finding (+ NABS x 4 quad, Incisions appear intact. Dressing over LUQ appears c/d/i, MELLY drain with minimal serosanguineous drainage, + tenderness with palpation in the epigastric region, LUQ extending around the left flank but improved. ) Back: no CVA tenderness, + muscle spasm (+left sided paraspinal muscles) Extremities/Musculoskeletal: normal inspection, no pedal edema, normal range of motion Neurologic/Psych: alert, oriented x 3, + pertinent finding (mood is improved) Skin: normal color, warm/dry (Letty Wilson PA-C) Laboratory Results Last 24 Hours Test 04/28/17 05:48 White Blood Count 9.31 K/uL Red Blood Count 3.32 M/uL Hemoglobin 10.0 g/dL Hematocrit 30.1 % Mean Corpuscular Volume 90.7 fL Mean Corpuscular Hemoglobin 30.1 pg Mean Corpuscular Hemoglobin Concent 33.2 g/dl Platelet Count 191 K/uL Mean Platelet Volume 10.7 fL Neutrophils (%) (Auto) 66.3 % Lymphocytes (%) (Auto) 20.6 % Monocytes (%) (Auto) 8.2 % Eosinophils (%) (Auto) 4.5 % Basophils (%) (Auto) 0.3 % Neutrophils # (Auto) 6.17 K/uL Lymphocytes # (Auto) 1.92 K/uL Monocytes # (Auto) 0.76 K/uL Eosinophils # (Auto) 0.42 K/uL Basophils # (Auto) 0.03 K/uL RDW Standard Deviation 47.2 fL RDW Coefficient of Variation 14.2 % Immature Granulocyte % (Auto) 0.1 % Immature Granulocyte # (Auto) 0.01 K/uL Sodium Level 136 mmol/L Potassium Level 3.6 mmol/L Chloride Level 104 mmol/L Carbon Dioxide Level 25 mmol/L Anion Gap 7.0 mmol/L Blood Urea Nitrogen 6 mg/dl Creatinine 0.53 mg/dl Est Creatinine Clear Calc Drug Dose 166.9 ml/min Estimated GFR () 130.1 Estimated GFR (Non- 112.3 BUN/Creatinine Ratio 11.1 Random Glucose 85 mg/dl Calcium Level 8.3 mg/dl (Letty Wilson, TAMARA) Assessment and Plan PMHx chronic malabsorptive iron deficiency anemia, GERD, hx of Paulina-en-Y gastric bypass 2010 with multiple revisions due to gastric ulcers, HTN and possible IBS prior to any abdominal surgeries. She underwent Laparoscopic Revision/Reversal of Gastrojejunostomy; gastrogastrostomy; takedown of gastroenteric fistula; enteroenterostomy; partial small bowel resection; enterolysis; Intra-operative EGD S/p Revseral of Paulina-en-Y by Dr. Arnold on 04/25/17 - She has been on a dilaudid MANAGER REGIONAL for pain control, no basal, allowed 0.25 mg Q10 lockout, patient encouraged to use in limited fashion today in anticipation of discharge to home. - Had T-max of 38 at 1900 last night -patient denies any chest pain. - She is still having the left chest wall tenderness but states that this is slightly improved today. ambulating well after surgery, passing flatus, no bowel movement yet. - PT/OT on board - Antiemetics on board - NPO currently with fluids - diet per primary team - Protein supplement should be encouraged at time of discharge - possible that dilaudid was causing itchiness, Benadryl PO on board - itchiness resolved at this point. Muscle Spasm of paraspinal muscles, left - Use ice and heat for 20 min on and off to help alleviate pain. - Will also trial flexeril 5 mg BID prn for spasms -patient has taken her first dose 10 minutes prior to my interview with her today. Hypokalemia - K+ 3.6 today, improved. Follow am labs Anxiety ADD Insomnia - Pt follows with [facility], psychiatry in [place] and is prescribed medications by her - Continue on Vyvanse 60 mg QAM for ADD - Ativan reported as 2.5 mg PO HS and then during the day as needed however she cannot tell me exact dosing. Outpatient dosing says 1 mg PO HS and TID prn. While here in hospital pt allowed ativan 1 mg IV Q4H prn anxiety. - Continue Lunesta 3 mg HS and seroquel 25 mg HS for sleep HTN - Continue on amlodipine 10 mg - EKGs reviewed - Last dejan scan done Mar 2014 without acute abnormalities. Consult was placed for chest pressure and hx of vtach although pt denies any cardiac sx at this time. Asthma - Stable, last flare was >1 yr ago. Has advair inhaler, and albuteral nebulizer at home when needed. CODE STATUS: FULL CODE Disposition: From home, dc per primary team, possibly tomorrow. (Letty Wilson, PALucy) Attending note & Attestation: Pt seen/examined, chart reviewed, care plan d/w MARGARET Wilson. I agree w/ the akers components of her documentation. Pt w/o complaints of chest pain, dyspnea, cough, nausea, emesis. +flatus. Minimal abdominal pain during my visit. VSS no fever gen - NAD neck - no JVD heart - RRR lungs - CTA b/l abd - incisional tenderness only, nondistended, BS+, incisions clean, MELLY drain in place ext - no edema BMP wnl A/P: 1. s/p gastric bypass reversal (see details in Ms. Wilson's note) - management per Dr. Arnold 2. asthma - not in exacerbation 3. HTN - controlled 4. hypokalemia - resolved repeat labs in AM Ole LOWERY MD (John Lowery MD)
[2017-04-28] MEDS: VYVANSE: ORDER AWAITING ACTION SCH ×4 (07:49→23:27)
[2017-04-28] MEDS: CYCLOBENZAPRINE HCL 5 MG TAB PO PRN ×2 (08:02→21:14)
[2017-04-28] MEDS ORDERED: METHYLENE BLUE 1% 10 ML VIAL PO ONE (09:00)
[2017-04-28] MEDS: PANTOprazole SOD 40 MG TAB PO SCH (09:11)
[2017-04-28] MEDS: ENOXAPARIN 40 MG/0.4 ML SYR SQ SCH (09:12)
--- NOTE | 2017-04-28 09:49 | Surgery Progress Note ---
Surgery Progress Note Date of Service Apr 28, 2017. Subjective Post OP Day: 3 appears more comfortable today. no new complaints. Objective Vital Signs: Date Time Temp Pulse Resp B/P (MAP) Pulse Ox O2 Delivery O2 Flow Rate FiO2 04/28/17 07:33 37.1 83 17 99/59 (72) 96 Room Air 04/28/17 03:38 119/79 (92) 04/28/17 02:34 37.3 88 14 82/50 (61) 95 Room Air 89/59 (69) 04/27/17 23:35 Room Air 04/27/17 23:07 37.2 83 18 119/74 (89) 92 Room Air 04/27/17 20:40 37.5 04/27/17 19:00 38.0 92 18 112/65 (81) 92 Room Air 04/27/17 15:40 Room Air 04/27/17 15:32 37.5 83 18 116/75 (89) 93 Room Air 04/27/17 11:29 37.3 69 18 129/71 (90) 96 Room Air General Appearance: no apparent distress Respiratory/Chest: no respiratory distress, no accessory muscle use Abdomen: soft Incision(s): clean, dry, intact, findings (MELLY serous/no blue dye) Laboratory Results: Results Past 24 Hours Test 04/28/17 05:48 Range/Units White Blood Count 9.31 4.8-10.8 K/uL Red Blood Count 3.32 4.2-5.4 M/uL Hemoglobin 10.0 12.0-16.0 g/dL Hematocrit 30.1 37-47 % Mean Corpuscular Volume 90.7 80-100 fL Mean Corpuscular Hemoglobin 30.1 25-34 pg Mean Corpuscular Hemoglobin Concent 33.2 32-36 g/dl Platelet Count 191 130-400 K/uL Mean Platelet Volume 10.7 7.4-10.4 fL Neutrophils (%) (Auto) 66.3 % Lymphocytes (%) (Auto) 20.6 % Monocytes (%) (Auto) 8.2 % Eosinophils (%) (Auto) 4.5 % Basophils (%) (Auto) 0.3 % Neutrophils # (Auto) 6.17 1.4-6.5 K/uL Lymphocytes # (Auto) 1.92 1.2-3.4 K/uL Monocytes # (Auto) 0.76 0.11-0.59 K/uL Eosinophils # (Auto) 0.42 0-0.5 K/uL Basophils # (Auto) 0.03 0-0.2 K/uL RDW Standard Deviation 47.2 36.4-46.3 fL RDW Coefficient of Variation 14.2 11.5-14.5 % Immature Granulocyte % (Auto) 0.1 % Immature Granulocyte # (Auto) 0.01 0.00-0.02 K/uL Sodium Level 136 136-145 mmol/L Potassium Level 3.6 3.5-5.1 mmol/L Chloride Level 104 98-107 mmol/L Carbon Dioxide Level 25 21-32 mmol/L Anion Gap 7.0 3-11 mmol/L Blood Urea Nitrogen 6 7-18 mg/dl Creatinine 0.53 0.60-1.20 mg/dl Est Creatinine Clear Calc Drug Dose 166.9 ml/min Estimated GFR () 130.1 Estimated GFR (Non- 112.3 BUN/Creatinine Ratio 11.1 10-20 Random Glucose 85 70-99 mg/dl Calcium Level 8.3 8.5-10.1 mg/dl Assessment & Plan POD 3 doing well blue dye test neg so far. d/w nursing, may have clears if no blue in drain by 10 :30 am today ugi tomorrow. if all goes well can d/c home tomorrow. POD 2 overall doing ok will give blue dye test tomorrow tentatively plan d/c saturday if she continues to do well POD 2 overall doing ok will give blue dye test tomorrow tentatively plan d/c saturday if she continues to do well
[2017-04-28] MEDS: SODIUM CHLORIDE 0.9% 1000ML 1,000 ML IV SCH (15:01)
[2017-04-28] MEDS: QUETIAPINE FUMARATE 25 MG TAB PO SCH (21:14)
[2017-04-28] MEDS: AMLODIPINE BESYLATE 5 MG TAB PO SCH (21:14)
[2017-04-28] MEDS: FAMOTIDINE IV INJ 20 MG in SYRINGE 3 ML IV PRN (21:54)
[2017-04-28] MEDS: HYDROmorphone HCL 0.5MG/ML 50 ML CASSETTE IV PRN (23:04)
[2017-04-28] MEDS: ACETAMINOPHEN 325 MG TAB PO PRN (23:29)
[2017-04-29 03:45] VITALS: BP_SYST 90; BP_SYST 97; BP_DIAS 57; BP_DIAS 63; PULSE 77; TEMP 37; O2SAT 96
[2017-04-29] MEDS: D5W AND 1/2NSS + 20MEQ KCL 1,000 ML IV SCH ×2 (05:10→13:00)
[2017-04-29] MEDS: HYDROmorphone HCL 0.5MG/ML 50 ML CASSETTE IV PRN (07:14)
[2017-04-29 07:30] VITALS: O2SAT 96
[2017-04-29 07:37] VITALS: BP 108/67; PULSE 79; TEMP 37.1; O2SAT 96
[2017-04-29] MEDS: VYVANSE: ORDER AWAITING ACTION SCH (08:00)
[2017-04-29 08:18] LABS: CALCIUM 8.3 mg/dl (8.5-10.1); CREATININE 0.47 mg/dl (0.60-1.20); POTASSIUM 3.6 mmol/L (3.5-5.1)
[2017-04-29] MEDS ORDERED: OXYC-57 PO (08:25)
--- NOTE | 2017-04-29 08:29 | Surgery Progress Note ---
Surgery Progress Note Date of Service Apr 29, 2017. Subjective Post OP Day: 4 pt not in her room/down getting UGI Objective Vital Signs: Date Time Temp Pulse Resp B/P (MAP) Pulse Ox O2 Delivery O2 Flow Rate FiO2 04/29/17 07:37 37.1 79 16 108/67 (81) 96 Room Air 04/29/17 07:30 96 Room Air 04/29/17 03:45 37.0 77 15 90/57 (68) 96 Room Air 97/63 (74) 04/28/17 23:32 37.0 83 16 114/62 (79) 97 Room Air 04/28/17 23:30 Room Air 04/28/17 19:11 37.5 94 16 127/78 (94) 99 Room Air 04/28/17 15:30 Room Air 04/28/17 15:23 37.4 71 18 108/67 (81) 98 Room Air 04/28/17 12:00 36.9 77 16 108/74 (85) 100 Room Air Laboratory Results: Results Past 24 Hours Test 04/29/17 06:26 Range/Units Sodium Level 141 136-145 mmol/L Potassium Level 3.6 3.5-5.1 mmol/L Chloride Level 108 98-107 mmol/L Carbon Dioxide Level 25 21-32 mmol/L Anion Gap 8.0 3-11 mmol/L Blood Urea Nitrogen 4 7-18 mg/dl Creatinine 0.47 0.60-1.20 mg/dl Est Creatinine Clear Calc Drug Dose 188.3 ml/min Estimated GFR () 135.4 Estimated GFR (Non- 116.8 BUN/Creatinine Ratio 9.4 10-20 Random Glucose 80 70-99 mg/dl Calcium Level 8.3 8.5-10.1 mg/dl Magnesium Level 2.0 1.8-2.4 mg/dl Assessment & Plan pod4 if UGI ok will advance to full liquids d/c planning for today instructions given over the weekend. POD 3 doing well blue dye test neg so far. d/w nursing, may have clears if no blue in drain by 10 :30 am today ugi tomorrow. if all goes well can d/c home tomorrow. POD 2 overall doing ok will give blue dye test tomorrow tentatively plan d/c saturday if she continues to do well POD 3 doing well blue dye test neg so far. d/w nursing, may have clears if no blue in drain by 10 :30 am today ugi tomorrow. if all goes well can d/c home tomorrow. POD 2 overall doing ok will give blue dye test tomorrow tentatively plan d/c saturday if she continues to do well
--- NOTE | 2017-04-29 08:31 | Discharge Instructions ---
Discharge Instructions Date of Service Apr 29, 2017. Admission Reason for Admission: Recurrent Gastric Ulcers Discharge Discharge Diagnosis / Problem: Laparoscopic Revision/Reversal of Gastrojejunostomy Discharge Goals Goal(s): Therapeutic intervention Activity Recommendations Activity Limitations: as noted below Lifting Limitations: no more than 10 pounds Shower/Bathe: no limitations . Instructions / Follow-Up Instructions / Follow-Up Dr. Arnold in approx 2 weeks, call [phone] if you do not already have an appt or have any questions Stay on liquid diet (anything you can eat with a spoon) until follow-up Change bandage daily, remove to shower, can discontinue when drainage stops Current Hospital Diet Patient's current hospital diet: Clear Liquid Diet Discharge Diet Recommended Diet: Full Liquid Diet Procedures Procedures Performed: Laparoscopic Revision/Reversal of Gastrojejunostomy; gastrogastrostomy;takedown of gastroenteric fistula; enteroenterostomy;partial small bowelresection; enterolysis; Intra-operativeEsophagogastroduodenoscopy Pending Studies Studies pending at discharge: no Medical Emergencies . Who to Call and When: Medical Emergencies: If at any time you feel your situation is an emergency, please call 911 immediately. . Non-Emergent Contact Non-Emergency issues call your: Surgeon Call Non-Emergent contact if: you have a fever, temperature is above 101.5, your pain is not controlled, wound has increased drainage, wound has increased redness, you have any medication questions . "Provider Documentation" section prepared by Juventino Luna. . VTE Core Measure Inpt VTE Proph given/why not?: Enoxaparin (Lovenox)SQ, SCD's
[2017-04-29] MEDS: PANTOprazole SOD 40 MG TAB PO SCH (09:13)
[2017-04-29] MEDS: ENOXAPARIN 40 MG/0.4 ML SYR SQ SCH (09:13)
--- NOTE | 2017-04-29 09:20 | DIAGNOSTIC IMAGING REPORT ---
GI SERIES W/O KUB CLINICAL HISTORY: Status post laparoscopic revision/reversal of the gastrojejunostomy. COMPARISON STUDY: None. FLUOROSCOPY TIME: 1.2 minutes. FINDINGS: 12 fluoroscopic images were obtained. A left upper quadrant surgical drain is in place. No extraluminal contrast is noted. Postoperative findings within the stomach are noted. There is contrast opacification of the distal stomach, duodenum and jejunum. There is no evidence for a significant obstruction. Cholecystectomy clips are noted. IMPRESSION: 1. No extraluminal contrast to suggest leak. 2. Postoperative findings suggestive of gastrojejunostomy reversal. Electronically signed by: Liborio Moura M.D. 04/29/2017 9:18 AM Dictated Date/Time: 04/29/2017 8:27 AM
[2017-04-29] MEDS ORDERED: FLX5 PO (09:51)
--- NOTE | 2017-04-29 09:56 | Surgery Progress Note ---
Surgery Progress Note Date of Service Apr 29, 2017. Subjective Post OP Day: 4 + complaints (left shoulder pain), + using COUNTY HISTORIAN, + diet (clears), No nausea Objective Vital Signs: Date Time Temp Pulse Resp B/P (MAP) Pulse Ox O2 Delivery O2 Flow Rate FiO2 04/29/17 07:37 37.1 79 16 108/67 (81) 96 Room Air 04/29/17 07:30 96 Room Air 04/29/17 03:45 37.0 77 15 90/57 (68) 96 Room Air 97/63 (74) 04/28/17 23:32 37.0 83 16 114/62 (79) 97 Room Air 04/28/17 23:30 Room Air 04/28/17 19:11 37.5 94 16 127/78 (94) 99 Room Air 04/28/17 15:30 Room Air 04/28/17 15:23 37.4 71 18 108/67 (81) 98 Room Air 04/28/17 12:00 36.9 77 16 108/74 (85) 100 Room Air Physical Exam: MELLY drainage (40 cc, serous) Abdomen: soft Incision(s): clean, dry Laboratory Results: Results Past 24 Hours Test 04/29/17 06:26 Range/Units Sodium Level 141 136-145 mmol/L Potassium Level 3.6 3.5-5.1 mmol/L Chloride Level 108 98-107 mmol/L Carbon Dioxide Level 25 21-32 mmol/L Anion Gap 8.0 3-11 mmol/L Blood Urea Nitrogen 4 7-18 mg/dl Creatinine 0.47 0.60-1.20 mg/dl Est Creatinine Clear Calc Drug Dose 188.3 ml/min Estimated GFR () 135.4 Estimated GFR (Non- 116.8 BUN/Creatinine Ratio 9.4 10-20 Random Glucose 80 70-99 mg/dl Calcium Level 8.3 8.5-10.1 mg/dl Magnesium Level 2.0 1.8-2.4 mg/dl Assessment & Plan Laparoscopic Revision/Reversal of Gastrojejunostomy UGI negative for leak MELLY removed advance diet to full liquids d/c [employer] H[employer]ORIAN home today if tolerates diet and Percocet
[2017-04-29] MEDS ORDERED: OXYCODONE/ACETAMINOPHEN 5-325 TAB PO PRN (12:00)
[2017-04-29 13:58] VITALS: BP 108/67; PULSE 79; TEMP 37.1; O2SAT 96
--- NOTE | 2017-04-29 18:24 | Progress Note ---
Subjective Date of Service: Apr 29, 2017. Subjective Pt evaluation today including: conversation w/ patient, physical exam, chart review, lab review, review of studies (Upper GI series) Pain: back "spasms" relieved w/ flexeril PO Intake: tolerating liquids Voiding: no voiding problems no asthma symptoms (cough, wheeze, dyspnea) +flatus and stool feels good anxious for discharge Review of Systems Constitutional: No fever Respiratory: No cough, No shortness of breath, No dyspnea on exertion Cardiac: No chest pain Abdomen: No nausea, No vomiting, No diarrhea, No constipation Objective Vital Signs Date Time Temp Pulse Resp B/P (MAP) Pulse Ox O2 Delivery O2 Flow Rate FiO2 04/29/17 07:37 37.1 79 16 108/67 (81) 96 Room Air 04/29/17 07:30 96 Room Air 04/29/17 03:45 37.0 77 15 90/57 (68) 96 Room Air 97/63 (74) 04/28/17 23:32 37.0 83 16 114/62 (79) 97 Room Air 04/28/17 23:30 Room Air 04/28/17 19:11 37.5 94 16 127/78 (94) 99 Room Air 04/28/17 15:30 Room Air 04/28/17 15:23 37.4 71 18 108/67 (81) 98 Room Air Physical Exam General Appearance: no apparent distress ENT: pharynx normal Neck: no JVD Respiratory/Chest: lungs clear, no respiratory distress, no accessory muscle use Cardiovascular: regular rate, rhythm, no gallop, no murmur Abdomen: normal bowel sounds, non tender, soft, no organomegaly Extremities: no pedal edema Neurologic/Psychiatric: alert, oriented x 3 Skin: + pertinent finding (surgical incisions - abdominal wall - clean, intact) Laboratory Results Last 24 Hours Test 04/29/17 06:26 Sodium Level 141 mmol/L Potassium Level 3.6 mmol/L Chloride Level 108 mmol/L Carbon Dioxide Level 25 mmol/L Anion Gap 8.0 mmol/L Blood Urea Nitrogen 4 mg/dl Creatinine 0.47 mg/dl Est Creatinine Clear Calc Drug Dose 188.3 ml/min Estimated GFR () 135.4 Estimated GFR (Non- 116.8 BUN/Creatinine Ratio 9.4 Random Glucose 80 mg/dl Calcium Level 8.3 mg/dl Magnesium Level 2.0 mg/dl Assessment and Plan 46yo female - A/P: 1. s/p gastric bypass reversal - doing well from surgery standpoint; management per Dr. Arnold. Upper GI series w/ intact upper GI tract. Tolerating liquids. Pain is well-controlled. Moving bowels. 2. asthma - not in exacerbation 3. HTN - controlled 4. hypokalemia - resolved 5. anemia - at risk of B12 and Fe deficiency. Advised she have all nutritional labs repeated upon return to her family doctor in [place]. H/H stable while here otherwise. 6. back spasms - flexeril is appropriate at d/c for a few days. Advised to NOT drive while taking flexeril or use concurrently with narcotics. She voiced understanding. from medical standpoint she is fit for discharge to home Discharge planning: home
--- NOTE | 2017-05-01 12:49 | EDITING REQUIRED CODING QUERY ---
CODING QUERY To promote full compliance with coding requirements relating to patient care, provider participation is requested in all cases of vessel scrapper uncertainty. Please assist us with the question(s) below: Coding Question(s): Please clarify below, regarding the recurrent marginal ulcers in patient with procedure done for reversal/revision of Paulina-en-Y gastric bypass. (X ) recurrent marginal ulcers are a complication of the gastric bypass ( ) recurrent marginal ulcers are not a complication of the gastric byass Physician's Response(s): Thank you Angeline Edge Principal Diagnosis: "_that condition established after study, to be chiefly responsible for occasioning the admission of the patient to the hospital for care." Co-Existing Principal Diagnosis: "_when two or more diagnoses equally meet the criteria for principal diagnosis as determined by the circumstances of admission, diagnostic work up, and/or therapy provided, and the Alphabetic Index, Tabular List, or another coding guideline does not provide sequencing direction, any one of the diagnoses may be sequenced first." "When the physician has documented what appears to be a current diagnosis in the body of the record, but has not included the diagnosis in the final diagnostic statement, the physician should be asked whether the diagnosis should be added." (Source Coding [facility] 2 QTR90. p3-4)
--- NOTE | 2017-05-02 12:16 | DISCHARGE SUMMARY ---
PRIMARY DISCHARGE DIAGNOSES: 1. Recurrent marginal ulcers. 2. Gastroenteric fistula. SECONDARY DISCHARGE DIAGNOSES: 1. Asthma. 2. Hypertension. 3. Iron deficiency anemia. 4. Attention deficit disorder/anxiety. PROCEDURES PERFORMED: Laparoscopic revision/reversal of gastrojejunostomy, takedown of gastroenteric fistula, gastrostomy, enteroenterostomy, partial small bowel resection, enterolysis and intraoperative EGD. CONSULTATIONS: [facility] hospitalist for postoperative chest pain. HOSPITAL COURSE: The patient is a 46-year-old female with recurrent marginal ulcers and taken to the operating room for laparoscopic revision of gastrojejunostomy. The procedure was well tolerated. She was transferred to the surgical floor. MEDICAL NURSE was used for postoperative analgesia. She was complaining of pain on her left subcostal incision. Later that evening, she complained of pressure in her left chest and some difficulty taking a deep breath. The hospitalist was consulted at that time to help rule out acute coronary event. EKG was unremarkable. Troponin was normal. Chest x-ray was negative. Her pain was improving. She also complained of some spasms in her back, which improved with Flexeril. Her pain was managed better with the MEDICAL NURSE. She was kept on ice chips until postoperative day #3 when a blue dye test was negative. She was started on clear liquids. On postoperative day #4, she had an upper GI series, which did not show any evidence of a leak. MELLY drain was removed. She was advanced to full liquids. The MEDICAL NURSE was discontinued. By the afternoon, she was tolerating her diet and oral analgesics. She was stable for discharge. Her H&H had remained stable at 10 and 30. DISCHARGE INSTRUCTIONS: Discharge home. Follow up with Dr. Arnold in approximately 2 weeks. Continue a full liquid diet or anything that she can eat with the spoon. DISCHARGE MEDICATIONS: Flexeril 5 mg p.o. b.i.d. x3 to 5 days. Percocet 1-2 tablets every 4 hours as needed. Resume home medications of Ventolin HFA 2 puffs q. 6 hours as needed, Norvasc 10 mg daily, vitamin C 500 mg at bedtime, calcium 1200 mg at bedtime, vitamin D3 at 2000 units at bedtime, vitamin B12 at 2000 mcg at bedtime, Lunesta 3 mg at bedtime as needed, primrose oil 1 caplet daily, ferrous sulfate 325 mg daily, Vyvanse 60 mg daily, lorazepam 1-2 mg as needed for anxiety, daily multivitamin, Protonix 20 mg daily, Seroquel 25 mg at bedtime, Carafate 10 mg b.i.d., and vitamin E 800 units daily. MTDD
== END 2017-04-29 15:54 | disposition home or self-care (01) | DRG 327 ==
LOC: C.ACU 05:17 → C.MSW 11:45 → ENRESERV 11:58
PROVIDERS: ADMIT Surgery; ATTEND Surgery
PROC: 0DQA4ZZ Repair Jejunum, Percutaneous Endoscopic Approach (ICD-10-PCS; principal; 2017-04-25 07:00)
PROC: 0DN84ZZ Release Small Intestine, Percutaneous Endoscopic Approach (ICD-10-PCS; principal; 2017-04-25 07:00)
PROC: 0DBA4ZZ Excision of Jejunum, Percutaneous Endoscopic Approach (ICD-10-PCS; principal; 2017-04-25 07:00)
PROC: 0D164ZA Bypass Stomach to Jejunum, Percutaneous Endoscopic Approach (ICD-10-PCS; principal; 2017-04-25 07:00)
PROC: 0DQ64ZZ Repair Stomach, Percutaneous Endoscopic Approach (ICD-10-PCS; principal; 2017-04-25 07:00)
PROC: 0DN64ZZ Release Stomach, Percutaneous Endoscopic Approach (ICD-10-PCS; principal; 2017-04-25 07:00)
DX: K91.89 Other postprocedural complications and disorders of digestive system (principal); K31.6 Fistula of stomach and duodenum; K90.49 Malabsorption due to intolerance, not elsewhere classified; K28.9 Gastrojejunal ulcer, unspecified as acute or chronic, without hemorrhage or perforation; K66.0 Peritoneal adhesions (postprocedural) (postinfection); Z98.84 Bariatric surgery status; E87.6 Hypokalemia; M62.830 Muscle spasm of back; L29.9 Pruritus, unspecified; T40.2X5A Adverse effect of other opioids, initial encounter; R07.89 Other chest pain; D50.9 Iron deficiency anemia, unspecified; J45.909 Unspecified asthma, uncomplicated; I10 Essential (primary) hypertension; K21.9 Gastro-esophageal reflux disease without esophagitis; F41.9 Anxiety disorder, unspecified; F98.8 Other specified behavioral and emotional disorders with onset usually occurring in childhood and adolescence; G47.00 Insomnia, unspecified; Z79.899 Other long term (current) drug therapy; Z88.5 Allergy status to narcotic agent; Z88.8 Allergy status to other drugs, medicaments and biological substances; Z91.040 Latex allergy status; Z82.49 Family history of ischemic heart disease and other diseases of the circulatory system; Z82.3 Family history of stroke; Z83.3 Family history of diabetes mellitus; Z80.3 Family history of malignant neoplasm of breast; Y83.2 Surgical operation with anastomosis, bypass or graft as the cause of abnormal reaction of the patient, or of later complication, without mention of misadventure at the time of the procedure

== ENCOUNTER → 2017-05-14 | Outpatient (CLI) | payer BC ==
[~2017-05-14] MED LIST changes: +FLX5 PO; +OXYC-57 PO
[2017-05-14 14:37] LABS: BASO % 0.5 %; BASO ABS # 0.04 K/uL (0-0.2); EOS % 3.8 %; EOS ABS # 0.32 K/uL (0-0.5); HEMATOCRIT 34.7 % (37-47); HEMOGLOBIN 11.6 g/dL (12.0-16.0); IG# 0.03 K/uL (0.00-0.02); LYMPH % 24.1 %; LYMPH ABS # 2.02 K/uL (1.2-3.4); MEAN CELL VOLUME 88.3 fL (80-100); MEAN CORPUSCULAR HEMOGLOBIN 29.5 pg (25-34); MEAN CORPUSCULAR HGB CONC 33.4 g/dl (32-36); MEAN PLATELET VOLUME 8.7 fL (7.4-10.4); MONO % 8.5 %; MONO ABS # 0.71 K/uL (0.11-0.59); NEUT % 62.7 %; NEUT ABS # 5.26 K/uL (1.4-6.5); PLATELET COUNT 651 K/uL (130-400); RED CELL DISTRIBUTION WIDTH CV 14.3 % (11.5-14.5); RED CELL DISTRIBUTION WIDTH SD 46.1 fL (36.4-46.3); WHITE BLOOD COUNT 8.38 K/uL (4.8-10.8)
[2017-05-14 15:08] LABS: ALBUMIN 2.7 gm/dl (3.4-5.0); ALT/SGPT 25 U/L (12-78); BLOOD UREA NITROGEN 10 mg/dl (7-18); CALCIUM 9.1 mg/dl (8.5-10.1); CARBON DIOXIDE 26 mmol/L (21-32); GLUCOSE 80 mg/dl (70-99); POTASSIUM 3.9 mmol/L (3.5-5.1); SODIUM 137 mmol/L (136-145)
[2017-05-14 15:12] LABS: ALKALINE PHOSPHATASE 353 U/L (45-117); AST/SGOT 25 U/L (15-37); TRANSFERRIN 168 mg/dl (200-360)
== END | disposition home or self-care (01) ==
LOC: C.LAB 12:47
PROVIDERS: ATTEND Surgery
DX: K25.9 Gastric ulcer, unspecified as acute or chronic, without hemorrhage or perforation (principal); Z98.84 Bariatric surgery status; D50.9 Iron deficiency anemia, unspecified

== ENCOUNTER → 2017-06-20 | Day surgery (SDC) | payer BC ==
[2017-06-14 14:14] VITALS: Ht 175.3 cm; Wt 93.6 kg
[~2017-06-20] VITALS: Ht 175.3 cm; Wt 93.6 kg
[~2017-06-20] MED LIST changes: +ACET-1256 PO; +ATROPINE SULFATE 0.1 MG/ML 5ML SYR IV PRN; +DEXAMETHASONE SOD INJ 4 MG/ML VIAL ONE; +DiphenhydrAMINE HCL 50 MG/ML VIAL ONE; +EpHEDrine SULFATE INJ 50 MG/ML AMP IV PRN; +FENTANYL CITRATE INJ 50 MCG/1 ML 2 ML VIAL ONE; -FLX5 PO; +LACTATED RINGER'S 1000ML 1,000 ML IV SCH; +LIDOCAINE HCL 2% 2 ML VIAL (20MG/ML) ONE; +METOCLOPRAMIDE HCL INJ 5 MG/ML 2 ML VIAL ONE; +MIDAZOLAM HCL 1 MG/ML 2ML VIAL ONE; +ONDA4TAB46 PO; +ONDANSETRON INJ 2 MG/ML 2 ML VIAL IV PRN; +ONDANSETRON INJ 2 MG/ML 2 ML VIAL ONE; -OXYC-57 PO; +PROMETHAZINE HCL INJ 25 MG/ML 1 ML VIAL ONE; +PROPOFOL IV EMULSION 10 MG/ML 20 ML VIAL IV ONE; +SODIUM CHLORIDE 0.9% 1000ML 1,000 ML IV SCH
[2017-06-20 07:18] LABS: BASO % 1.3 %; BASO ABS # 0.07 K/uL (0-0.2); EOS % 5.2 %; EOS ABS # 0.28 K/uL (0-0.5); HEMATOCRIT 35.2 % (37-47); HEMOGLOBIN 11.9 g/dL (12.0-16.0); IG# 0.01 K/uL (0.00-0.02); LYMPH % 44.3 %; LYMPH ABS # 2.39 K/uL (1.2-3.4); MEAN CELL VOLUME 87.3 fL (80-100); MEAN CORPUSCULAR HEMOGLOBIN 29.5 pg (25-34); MEAN PLATELET VOLUME 9.8 fL (7.4-10.4); MONO % 8.7 %; MONO ABS # 0.47 K/uL (0.11-0.59); NEUT % 40.3 %; NEUT ABS # 2.17 K/uL (1.4-6.5); PLATELET COUNT 299 K/uL (130-400); RED CELL DISTRIBUTION WIDTH CV 15.6 % (11.5-14.5); RED CELL DISTRIBUTION WIDTH SD 50.4 fL (36.4-46.3); WHITE BLOOD COUNT 5.39 K/uL (4.8-10.8)
[2017-06-20 07:19] VITALS: BP 119/60; PULSE 72; TEMP 36.6; O2SAT 99
[2017-06-20 07:27] LABS: MEAN CORPUSCULAR HGB CONC 33.8 g/dl (32-36)
--- NOTE | 2017-06-20 08:31 | Discharge Instructions ---
Discharge Instructions Date of Service Jun 20, 2017. Admission Reason for Admission: Food Intolerance; Gastric Ulcer; Hx of Paulina-En-Y Discharge Discharge Diagnosis / Problem: Food Intolerance; Gastric Ulcer; Hx of Paulina-En-Y Discharge Goals Goal(s): Decrease discomfort, Improve function Activity Recommendations Activity Limitations: as noted below Lifting Limitations: gradually increase as tolerated Exercise/Sports Limitations: gradually increase as tolerated May Resume Sexual Activity: when tolerated Shower/Bathe: no limitations Driving or Machine Use: resume 1 day after discharge . Instructions / Follow-Up Instructions / Follow-Up Dr. Arnold is recommending that you maintain a soft diet at home. Continue Protonix. Please follow-up with Dr. Arnold in the General Surgery Clinic in 1-2 weeks. Please call the office at [phone] to make an appointment if you do not have one already. Please call the office with any questions or concerns. Current Hospital Diet Patient's current hospital diet: Discharge Diet Recommended Diet: Regular Diet Diet Texture: Mechanical Soft (ground) Procedures Procedures Performed: Esophagogastroduodenoscopy with Balloon Dilation Pending Studies Studies pending at discharge: no Medical Emergencies . Who to Call and When: Medical Emergencies: If at any time you feel your situation is an emergency, please call 911 immediately. . Non-Emergent Contact Non-Emergency issues call your: Primary Care Provider, Surgeon Call Non-Emergent contact if: temperature is above 101.5, your pain is not controlled . "Provider Documentation" section prepared by Ana Laura Painter. .
--- NOTE | 2017-06-20 08:41 | [facility] Operative Report ---
Operative Report Operative Date Jun 20, 2017. Pre-Operative Diagnosis 1. Food Intolerance Post-Operative Diagnosis Esophageal Stricture Procedure(s) Performed Esophagogastroduodenoscopy with Balloon Dilation to [address] Victor Manuel Arnold Development Technical Lead Surgeon(s) none Estimated Blood Loss 3mL Specimens Per Endoscopy staff Anesthesia Type MAC Complication(s) none Description of Procedure After informed consent was obtained the patient was brought to the operating room and placed in supine position. IV sedation was administered by anesthesia and titrated to effect. After adequate sedation a bite block was placed the patient was placed in the left lateral Fowlers position. The gastroscope was inserted into the oropharynx and the proximal esophagus without difficulty. Keeping the lumin in view at all times scope was passed down into the patient's stomach. The anastomosis was visible but it was strictured. There was a small associated ulcer. It was so tight that I was unable to pass the scope through the anastomosis. I therefore advanced a balloon dilator into the distal stomach through the anastomosis under direct vision. We opened the balloon to 10 mm for a minute and a half. We then increased it to 11 mm for a minute and a half. I then deflated the balloon and withdrew it. After that the scope easily passed through the anastomosis into the distal stomach. I went through the pylorus and the first second portions of the duodenum which were normal. No other abnormalities were identified. I did not want a risk anastomotic perforation so I stopped at 11 mm. There was a very small amount of mucosal disruption with a very small amount of bleeding. Remainder of the stomach look normal. The esophagus looked normal as well. I decompressed the stomach withdrew the scope. The patient was awakened and transferred to recovery in stable condition. I attest to the content of the Intraoperative Record and any orders documented therein. Any exceptions are noted below.
[2017-06-20 09:15] VITALS: BP 110/64; PULSE 68; TEMP 36.4; O2SAT 100
--- NOTE | 2017-06-20 09:30 | Anesthesiology Progress Note ---
Anesthesia Post Op Note Date & Time Jun 20, 2017 at 09:30 Vital Signs Pain Intensity: 0 Vital Signs Past 12 Hours Date Time Temp Pulse Resp B/P (MAP) Pulse Ox O2 Delivery O2 Flow Rate FiO2 06/20/17 09:10 36.3 60 17 99/66 97 Room Air 06/20/17 09:00 66 12 115/77 95 Room Air 06/20/17 08:51 36.0 75 16 124/86 94 Room Air 06/20/17 07:19 36.6 72 18 119/60 (79) 99 Room Air Notes Mental Status: alert / awake / arousable, participated in evaluation Pt Amnestic to Procedure: Yes Nausea / Vomiting: adequately controlled Pain: adequately controlled Airway Patency, RR, SpO2: stable & adequate BP & HR: stable & adequate Hydration State: stable & adequate Anesthetic Complications: no major complications apparent
[2017-06-20 09:45] VITALS: BP 111/63; PULSE 61; TEMP 36.4; O2SAT 98
== END | disposition home or self-care (01) ==
LOC: C.ACU 06:34
PROVIDERS: ATTEND Surgery
DX: K90.49 Malabsorption due to intolerance, not elsewhere classified (principal); J45.909 Unspecified asthma, uncomplicated; I10 Essential (primary) hypertension; K21.9 Gastro-esophageal reflux disease without esophagitis; Z98.84 Bariatric surgery status; F41.9 Anxiety disorder, unspecified; F32.9 Major depressive disorder, single episode, unspecified; E66.9 Obesity, unspecified; Z91.040 Latex allergy status; Z88.6 Allergy status to analgesic agent; Z90.49 Acquired absence of other specified parts of digestive tract; Z90.710 Acquired absence of both cervix and uterus; Z98.51 Tubal ligation status; Z79.899 Other long term (current) drug therapy; Z82.49 Family history of ischemic heart disease and other diseases of the circulatory system; Z82.3 Family history of stroke; Z83.3 Family history of diabetes mellitus; Z80.3 Family history of malignant neoplasm of breast

== ENCOUNTER 2017-07-15 15:16 | Emergency (ER) | payer BC ==
[~2017-07-15] VITALS: Ht 175.3 cm; Wt 95.4 kg
[~2017-07-15 15:16] MED LIST changes: -ATROPINE SULFATE 0.1 MG/ML 5ML SYR IV PRN; -DEXAMETHASONE SOD INJ 4 MG/ML VIAL ONE; -DiphenhydrAMINE HCL 50 MG/ML VIAL ONE; -EpHEDrine SULFATE INJ 50 MG/ML AMP IV PRN; -FENTANYL CITRATE INJ 50 MCG/1 ML 2 ML VIAL ONE; -LACTATED RINGER'S 1000ML 1,000 ML IV SCH; -LIDOCAINE HCL 2% 2 ML VIAL (20MG/ML) ONE; -METOCLOPRAMIDE HCL INJ 5 MG/ML 2 ML VIAL ONE; -MIDAZOLAM HCL 1 MG/ML 2ML VIAL ONE; -ONDANSETRON INJ 2 MG/ML 2 ML VIAL IV PRN; -ONDANSETRON INJ 2 MG/ML 2 ML VIAL ONE; -PROMETHAZINE HCL INJ 25 MG/ML 1 ML VIAL ONE; -PROPOFOL IV EMULSION 10 MG/ML 20 ML VIAL IV ONE; -SODIUM CHLORIDE 0.9% 1000ML 1,000 ML IV SCH
[2017-07-15 15:21] VITALS: TEMP 37; Ht 175.3 cm; Wt 95.4 kg
[2017-07-15] MEDS ORDERED: ONDANSETRON INJ 2 MG/ML 2 ML VIAL ONE (15:46)
[2017-07-15] MEDS ORDERED: HYDROmorphone INJ 1 MG/ML SYR IV STA (16:02)
[2017-07-15] MEDS ORDERED: SODIUM CHLORIDE 0.9% 1000ML 1,000 ML IV STA (16:02)
[2017-07-15 16:11] LABS: BASO % 0.6 %; BASO ABS # 0.05 K/uL (0-0.2); EOS % 3.1 %; EOS ABS # 0.25 K/uL (0-0.5); HEMATOCRIT 36.6 % (37-47); HEMOGLOBIN 12.5 g/dL (12.0-16.0); IG# 0.01 K/uL (0.00-0.02); LYMPH % 30.4 %; LYMPH ABS # 2.46 K/uL (1.2-3.4); MEAN CELL VOLUME 86.7 fL (80-100); MEAN CORPUSCULAR HEMOGLOBIN 29.6 pg (25-34); MEAN CORPUSCULAR HGB CONC 34.2 g/dl (32-36); MONO % 5.9 %; MONO ABS # 0.48 K/uL (0.11-0.59); NEUT % 59.9 %; NEUT ABS # 4.85 K/uL (1.4-6.5); PLATELET COUNT 302 K/uL (130-400); RED CELL DISTRIBUTION WIDTH CV 15.5 % (11.5-14.5); RED CELL DISTRIBUTION WIDTH SD 49.5 fL (36.4-46.3)
[2017-07-15 16:25] LABS: ALBUMIN 3.5 gm/dl (3.4-5.0); ALT/SGPT 18 U/L (12-78); AST/SGOT 21 U/L (15-37); BLOOD UREA NITROGEN 8 mg/dl (7-18); CARBON DIOXIDE 26 mmol/L (21-32); CREATININE 0.59 mg/dl (0.60-1.20); GLUCOSE 84 mg/dl (70-99); LIPASE 61 U/L (73-393); POTASSIUM 3.1 mmol/L (3.5-5.1); SODIUM 141 mmol/L (136-145)
[2017-07-15 16:28] LABS: ALKALINE PHOSPHATASE 126 U/L (45-117); TOTAL PROTEIN 8.4 gm/dl (6.4-8.2)
[2017-07-15] MEDS ORDERED: ACETAMINOPHEN IV 100 ML IV ONE (17:00)
--- NOTE | 2017-07-15 18:14 | DIAGNOSTIC IMAGING REPORT ---
ABDOMEN 2VIEW W/PA CHEST RTN CLINICAL HISTORY: hx gastric bypass with ulcer; pain and hematensis pain. Nausea. COMPARISON STUDY: No previous studies for comparison. FINDINGS: The soft tissues, psoas shadows, renal outlines and intestinal gas pattern appear normal. There is no evidence for bowel obstruction. There is no evidence for free intraperitoneal air. No abnormal abdominal calcifications are seen. A frontal view of the chest was performed and is unremarkable. Minimal nonobstructive ileus. IMPRESSION: 1. Negative chest. 2. Minimal nonobstructive ileus. The above report was generated using voice recognition software. It may contain grammatical, syntax or spelling errors. Electronically signed by: Luis Felipe Menjivar M.D. 07/15/2017 6:13 PM Dictated Date/Time: 07/15/2017 6:12 PM
[2017-07-15 18:51] VITALS: BP 175/100; PULSE 69; O2SAT 97
--- NOTE | 2017-07-15 23:34 | EMERGENCY ROOM VISIT NOTE ---
ED Visit Note First contact with patient: 15:40 Chief Complaint: Abdominal pain and vomiting coffee ground emesis. History of Present Illness: Ms. Warner is a 47 year-old white female complaining of epigastric abdominal pain with associated vomiting of coffee ground emesis. Historically patient reports reports she has had a Paulina-en-Y bypass and has developed marginal ulcers. She had her gastric bypass reversed in April of this year. Since the reversal she reports she has had early satiety and nausea and vomiting every day. She was seen by Dr. Arnold in early June and had a dilatation of her esophagus. She reports after this procedure she was feeling well for approximately 1 week and then had return of early satiety and nausea and vomiting. Patient reports shortly after waking this morning, approximately approximately 6 -7 hours ago she developed epigastric abdominal pain and became nauseated. She reported she had an episode of vomiting that she reported look like coffee grounds. She reports since her pain started it has been constant. She describes the pain as a cramping sensation. Currently she rates her discomfort 8/10. Her pain is nonradiating. Her pain worsens when she attempts to eat. She has had continuous nausea but that only one episode of vomiting. She has not taken any medications for her symptoms because she feels if she attempts she will become more nauseated and possibly have additional episodes of vomiting. Associated with her pain she reports she has been having chills but no marine fever. Additionally when questioned she reports she only had 1 small bowel movement today and she describes it as a mucousy yellow color. Patient denies fevers, chills, sweats, skin eruptions, skin color changes, upper respiratory tract symptoms, shortness of breath, chest pain, rectal bleeding, black/tarry stools, urinary symptoms, hematuria, vaginal bleeding, vaginal discharge, back/flank pain. Review of Systems: As noted above in history of present illness. All body systems were reviewed and found to be negative as noted above. Past Medical History: As previously noted asthma, hypertension, bronchitis, status post cholecystectomy, hysterectomy and tubal ligation. Current Medications: Medications Dose Route/Sig Max Daily Dose Days Date Category Tylenol (Acetaminophen) 500 Mg Tab 2 Tab PO Q6 06/20/17 Reported Zofran (Ondansetron HCl) 4 Mg Tab 4 Mg PO PRN PRN 06/14/17 Reported Ferrous Sulfate 325 Mg Tab 325 Mg PO QPM 04/02/17 Reported Ventolin Hfa (Albuterol) 200 Puffs/98979 Mcg Aers 2 Puffs INH Q6H PRN 04/02/17 Reported Lorazepam 1 Mg Tab 1-2 Mg PO QAM PRN 04/02/17 Reported Protonix (Pantoprazole Sodium) 20 Mg Tab 20 Mg PO QAM 01/22/17 Reported Carafate (Sucralfate) 1 Gm/10 Ml O[place]a 10 Ml PO BID 01/22/17 Reported Vitamin D3 (Cholecalciferol) 1,000 Unit Tab 2,000 Unit PO HS 01/22/17 Reported Vyvanse (Lisdexamfetamine Dimesylate) 60 Mg Cap 60 Mg PO QAM 01/22/17 Reported Vitamin E 400 Unit Tab 800 Unit PO HS 01/22/17 Reported Vitamin C (Ascorbic Acid) 500 Mg Tab 500 Mg PO HS 01/22/17 Reported Vitamin B12 (Cyanocobalamin) 1,000 Mcg Tab 2,000 Mcg PO HS 01/22/17 Reported Seroquel (Quetiapine Fumarate) 25 Mg Tab 25 Mg PO HS 01/22/17 Reported Norvasc (Amlodipine Besylate) 10 Mg Tab 10 Mg PO QPM 01/22/17 Reported Lunesta (Eszopiclone) 3 Mg Tab 3 Mg PO HS PRN 01/22/17 Reported Multivitamin (Multivitamins) Tab 2 Tab PO HS 01/22/17 Reported Evening [place] Oil 1 Cap Cap 1 Cap PO QPM 01/22/17 Reported Calcium 600 Mg Tab 1,200 Mg PO HS 01/22/17 Reported Allergies to Medications: Benzoate, fentanyl, latex and morphine. Social History: Patient is currently employed; she feels safe in her home environment; she denies tobacco use. Physical Examination: Vital Signs: Date Time Temp Pulse Resp B/P (MAP) Pulse Ox O2 Delivery O2 Flow Rate FiO2 07/15/17 18:51 69 18 175/100 97 Room Air 07/15/17 17:34 68 20 171/102 98 Room Air 07/15/17 16:38 66 07/15/17 15:21 37.0 84 20 211/115 96 Room Air GENERAL: 47-year-old female in mild to moderate distress due to pain, nontoxic- appearing, afebrile and hemodynamically stable. NEUROLOGICAL: Awake, alert and oriented to person, place and time. Answering questions appropriately and following commands. Normal gait. Good hand eye coordination. SKIN: Warm, dry and pink. No soft tissue eruptions or trauma noted. HEENT: Atraumatic and normocephalic. PERRLA. Sclera white and conjunctiva pink. Oral cavity moist and pink. Pharynx is nonerythematous or edematous. Speech normal. No lymphadenopathy. Trachea midline. No jugular venous distention. BACK: No tenderness over the bony spine. No CVA tenderness. THORAX: Lungs sounds are clear to auscultation and equal bilaterally with symmetrical chest wall. No wheezing, rales or rhonchi. No crepitus, tenderness , subcutaneous air or deformities noted. HEART: Regular rate and rhythm. No gallops, rubs or murmurs are appreciated. ABDOMEN: Flat and soft with mild tenderness in the epigastrium and the medial borders of the right and left upper quadrants. Positive bowel sounds in all quadrants. No guarding, rigidity or organomegaly. EXTREMITIES: Moves all extremities well on command and with purpose. All distal neurovascular statuses are intact and equal bilaterally. ED Course: Patient is assessed as noted above. Patient's medication list was reviewed. Laboratory Testing: Test 07/15/17 15:38 Range/Units White Blood Count 8.10 4.8-10.8 K/uL Red Blood Count 4.22 4.2-5.4 M/uL Hemoglobin 12.5 12.0-16.0 g/dL Hematocrit 36.6 37-47 % Mean Corpuscular Volume 86.7 80-100 fL Mean Corpuscular Hemoglobin 29.6 25-34 pg Mean Corpuscular Hemoglobin Concent 34.2 32-36 g/dl Platelet Count 302 130-400 K/uL Mean Platelet Volume 10.0 7.4-10.4 fL Neutrophils (%) (Auto) 59.9 % Lymphocytes (%) (Auto) 30.4 % Monocytes (%) (Auto) 5.9 % Eosinophils (%) (Auto) 3.1 % Basophils (%) (Auto) 0.6 % Neutrophils # (Auto) 4.85 1.4-6.5 K/uL Lymphocytes # (Auto) 2.46 1.2-3.4 K/uL Monocytes # (Auto) 0.48 0.11-0.59 K/uL Eosinophils # (Auto) 0.25 0-0.5 K/uL Basophils # (Auto) 0.05 0-0.2 K/uL RDW Standard Deviation 49.5 36.4-46.3 fL RDW Coefficient of Variation 15.5 11.5-14.5 % Immature Granulocyte % (Auto) 0.1 % Immature Granulocyte # (Auto) 0.01 0.00-0.02 K/uL Sodium Level 141 136-145 mmol/L Potassium Level 3.1 3.5-5.1 mmol/L Chloride Level 109 98-107 mmol/L Carbon Dioxide Level 26 21-32 mmol/L Anion Gap 6.0 3-11 mmol/L Blood Urea Nitrogen 8 7-18 mg/dl Creatinine 0.59 0.60-1.20 mg/dl Est Creatinine Clear Calc Drug Dose 141.8 ml/min Estimated GFR () 124.7 Estimated GFR (Non- 107.6 BUN/Creatinine Ratio 13.2 10-20 Random Glucose 84 70-99 mg/dl Calcium Level 9.0 8.5-10.1 mg/dl Total Bilirubin 0.3 0.2-1 mg/dl Direct Bilirubin < 0.1 0-0.2 mg/dl Aspartate Amino Transf (AST/SGOT) 21 15-37 U/L Alanine Aminotransferase (ALT/SGPT) 18 12-78 U/L Alkaline Phosphatase 126 45-117 U/L Total Protein 8.4 6.4-8.2 gm/dl Albumin 3.5 3.4-5.0 gm/dl Lipase 61 73-393 U/L Acute Abdominal X-Ray Series: Were read by myself and the radiologist and shows no acute infiltrates, effusions or pneumothorax. Normal heart silhouette and bony anatomy. No free air. Radiologist notes minimal nonobstructive ileus. Patient was offered a CT and refused. Patient was hydrated with normal saline Patient was hydrated with normal saline, they received for pain and was given 1 g of acetaminophen IV for pain and 4 mg of Zofran IV; patient was initially offered and accepted Dilaudid but then refused. Patient was reassessed multiple times during her stay in the emergency department. I did have a lengthy conversation with the patient about possibly staying in the hospital for observation and she did not feel that was necessary. Patient was educated about today's findings and instructed on her treatment plan ; she verbalized understanding and agreement with this plan. Clinical Impression: Epigastric abdominal pain. Coffee ground emesis. Decision-Making: Initially my differential diagnosis I considered lower esophageal bleed, esophagitis, gastritis, gastric ulcer disease and other causes. Disposition: Patient discharged home in stable condition; prior to departure she was reassessed and subjectively reported she was feeling much better. She rated her discomfort 4/10 and had no additional episodes of vomiting. Plan: Patient was encouraged to continue her current medications as prescribed. Patient was encouraged you 650 mg of liquid acetaminophen every 6 hours as needed for pain. Patient was encouraged to use a liquid diet. Patient was encouraged to contact Dr. Arnold and inform them of today's ED visit and request follow-up care and treatment. Patient was encouraged return to the ED for worsening pain, fevers, any additional episodes of coffee ground emesis, bloody/tarry/black stools or any new/concerning symptoms.
== END 2017-07-15 19:13 | disposition home or self-care (01) ==
LOC: C.EDB 15:17 → C.EDA 19:13
DX: R10.13 Epigastric pain (principal); K92.0 Hematemesis; Z98.890 Other specified postprocedural states; J45.909 Unspecified asthma, uncomplicated; I10 Essential (primary) hypertension; Z90.49 Acquired absence of other specified parts of digestive tract; Z90.710 Acquired absence of both cervix and uterus; Z98.51 Tubal ligation status; Z79.899 Other long term (current) drug therapy; Z88.8 Allergy status to other drugs, medicaments and biological substances; Z91.040 Latex allergy status; Z88.5 Allergy status to narcotic agent

== ENCOUNTER 2017-07-30 05:34 | Inpatient (IN) | payer BC ==
[2017-07-25 08:20] VITALS: BMI 28.0
[~2017-07-30] VITALS: Ht 175.3 cm; Wt 88.2 kg
[2017-07-30] VITALS (9 sets, daily range): BP systolic 116–139; BP diastolic 75–93; PULSE 65–85; TEMP 36.3–36.7; O2SAT 96–99; Ht 175.3 cm; Wt 88.2 kg
[2017-07-30] MEDS ORDERED: LACTATED RINGER'S 1000ML 1,000 ML IV SCH ×3 (06:00→17:10)
[2017-07-30] MEDS ORDERED: MIDAZOLAM HCL 1 MG/ML 2ML VIAL ONE ×2 (06:51→13:19)
[2017-07-30] MEDS ORDERED: FENTANYL CITRATE INJ 50 MCG/1 ML 2 ML VIAL ONE (06:51)
--- NOTE | 2017-07-30 06:55 | History and Physical ---
History & Physical Date July 30, 2017. Chief Complaint pt with a history of prior gastric bypass with subsequent reversal secondary to recurrent ulcers. 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 History of Present Illness The patient is a 47 year old female with complaints of Past Medical/Surgical History Medical Problems: (1) Marginal ulcer Additional History Hepatic Disease: No Endocrine Disorder: No Kidney Disease: No Hypertension: No Heart Disease: No Bleeding Tendencies: No Infectious Diseases: No Allergies Coded Allergies: Benzonatate (Verified Allergy, Severe, ANAPHYLACTIC SHOCK, 07/30/17) Morphine (Verified Allergy, Severe, ANAPHYLACTIC SHOCK, 07/30/17) Fentanyl (Verified Allergy, Intermediate, EXCESSIVE GI UPSET, 07/30/17) Latex1 -Allergic Contact Dermititis (Verified Allergy, Intermediate, REDNESS, BLISTERS, RASH, 07/30/17) Home Medications Scheduled Acetaminophen (Tylenol), 2 TAB PO Q6 Amlodipine (Norvasc), 10 MG PO QPM Ascorbic Acid (Vitamin C), 500 MG PO HS Calcium (Calcium), 1,200 MG PO HS Cholecalciferol (Vitamin D3), 2,000 UNIT PO HS Cyanocobalamin (Vitamin B12), 2,000 MCG PO HS Evening [place] Oil (Evening [place] Oil), 1 CAP PO QPM Ferrous Sulfate (Ferrous Sulfate), 325 MG PO QPM Lisdexamfetamine Dimesylate (Vyvanse), 60 MG PO QAM Multivitamin (Multivitamin), 1 TAB PO BID Pantoprazole (Protonix), 20 MG PO QAM Quetiapine Fumarate (Seroquel), 25 MG PO HS Sucralfate (Carafate), 10 ML PO BID Vitamin E (Vitamin E), 800 UNIT PO HS Scheduled PRN Albuterol Hfa (Ventolin Hfa), 2 PUFFS INH Q6H PRN for Shortness of Breath Eszopiclone (Lunesta), 3 MG PO HS PRN for Sleep Lorazepam (Lorazepam), 1-2 MG PO QAM PRN for ANXIETY Ondansetron Hcl (Zofran), 4 MG PO PRN PRN for Nausea Physical Examination Skin: warm/dry Eyes: EOMI Neck: supple, trachea midline Respiratory/Chest: no respiratory distress Abdomen / GI: non tender Back: normal inspection Extremities: normal inspection Diagnosis anastomotic stricture at gastric anastomosis repeat egd/dilation risks/options discussed
[2017-07-30] MEDS ORDERED: KETAMINE HCL INJ 50 MG/ML 10 ML VIAL ONE (07:32)
[2017-07-30] MEDS ORDERED: LIDOCAINE HCL 2% 2 ML VIAL (20MG/ML) ONE ×2 (07:57→15:09)
[2017-07-30] MEDS ORDERED: PROPOFOL IV EMULSION 10 MG/ML 20 ML VIAL ONE ×2 (07:57→15:09)
[2017-07-30] MEDS ORDERED: ONDANSETRON INJ 2 MG/ML 2 ML VIAL ONE ×2 (08:01→15:09)
--- NOTE | 2017-07-30 08:01 | [facility] Post Operative Brief Note ---
Immediate Operative Summary Operative Date July 30, 2017. Pre-Operative Diagnosis anastomotic stricture with decreased food intolerance. Post-Operative Diagnosis anastomotic stricture with decreased food intolerance. Procedure(s) Performed Esophagogastroduodenoscopy with Balloon Dilation Surgeon Dr. Ricky Arnold Clinical Staff Anesthesiologist Surgeon(s) None Estimated Blood Loss 5 ml Findings Consistent with Post-Op Diagnosis Specimens None per surgeon Anesthesia Type MAC Complication(s) none
[2017-07-30] MEDS ORDERED: NURSING VERBAL MED ORDER ONE ×7 (08:15→19:15)
--- NOTE | 2017-07-30 08:21 | [facility] Operative Report ---
Operative Report Operative Date July 30, 2017. Pre-Operative Diagnosis anastomotic stricture with decreased food intolerance. Post-Operative Diagnosis anastomotic stricture with decreased food intolerance. Procedure(s) Performed Esophagogastroduodenoscopy with Balloon Dilation Surgeon Dr. Ricky Arnold Front Office Administrator Surgeon(s) None Estimated Blood Loss 5 ml Specimens None per surgeon Anesthesia Type MAC Complication(s) none Description of Procedure After informed consent was obtained the patient was taken the operating room placed in supine position. IV sedation was administered by anesthesia and titrated to effect. After adequate sedation was obtained a bite-block was placed and the patient was placed in the left lateral Fowlers position. The gastroscope was inserted into the oropharynx and into the proximal esophagus without difficulty. Keeping the lumen in view at all times the scope was passed down into the stomach. The anastomosis was in fact strictured again. I was unable to pass the scope through it. I was able to easily advance a guidewire followed by a balloon dilator. I serially dilated the anastomosis to 10 mm for a minute and then 11 mm for 2 minutes. I then deflated the balloon. I then advanced the scope through the anastomosis into the distal stomach. I Was able to go through the pylorus and into the first and second portions of the duodenum. No gross abnormalities were identified other than a mucosal ulceration at the anastomotic site as well as the stricture. There was a small amount of bleeding from disruption of the mucosa during the dilation but this was minimal. I then advanced to the balloon a second time and reinflated to 11 mm for 2 more minutes. We then deflated the balloon. I did not want to risk perforation so we stopped 11 mm. I suctioned out the stomach. No other abnormalities were identified. The scope was removed. The patient was awakened and transferred recovery in stable condition. I attest to the content of the Intraoperative Record and any orders documented therein. Any exceptions are noted below.
[2017-07-30] MEDS ORDERED: SODIUM CHLORIDE 0.9% 1000ML 1,000 ML IV SCH (08:23)
--- NOTE | 2017-07-30 08:23 | Discharge Instructions ---
Discharge Instructions Date of Service July 30, 2017. Admission Reason for Admission: Food Intolerance Discharge Discharge Diagnosis / Problem: anastomotic stricture Discharge Goals Goal(s): Improve function, Improve nutritional status, Therapeutic intervention Activity Recommendations Activity Limitations: resume your previous activity Exercise/Sports Limitations: as tolerated May Resume Sexual Activity: when tolerated Shower/Bathe: no limitations . Instructions / Follow-Up Instructions / Follow-Up call [phone] in 1-2 weeks to report how you are doing or if any problems Current Hospital Diet Patient's current hospital diet: Discharge Diet Recommended Diet: Low Fiber Diet Procedures Procedures Performed: Esophagogastroduodenoscopy with Balloon Dilation Pending Studies Studies pending at discharge: no Medical Emergencies . Who to Call and When: Medical Emergencies: If at any time you feel your situation is an emergency, please call 911 immediately. . Non-Emergent Contact Non-Emergency issues call your: Primary Care Provider, Surgeon . "Provider Documentation" section prepared by Victor Manuel Arnold. .
[2017-07-30] MEDS ORDERED: ONDANSETRON INJ 2 MG/ML 2 ML VIAL IV PRN ×3 (08:30→17:15)
[2017-07-30] MEDS ORDERED: PROMETHAZINE HCL INJ 6.25 MG in SODIUM CHLORIDE 0.9% 50ML 50 ML IV PRN (08:30)
[2017-07-30] MEDS ORDERED: HYDROmorphone INJ 0.5 MG/0.5 ML SYR ONE (08:36)
[2017-07-30] MEDS: HYDROmorphone INJ 0.5 MG/0.5 ML SYR IV PRN ×6 (08:36→20:35)
[2017-07-30] MEDS ORDERED: ACETAMINOPHEN 1000 MG/100 ML IV IV ONE (08:47)
[2017-07-30] MEDS ORDERED: EpHEDrine SULFATE INJ 50 MG/ML AMP IV PRN ×2 (09:00→15:00)
[2017-07-30] MEDS ORDERED: ATROPINE SULFATE 0.1 MG/ML 5ML SYR IV PRN ×2 (09:00→15:00)
[2017-07-30] MEDS ORDERED: ALBUT/IPRATROP 3MG/0.5MG NEB 3 ML VIAL INH ONE (09:15)
--- NOTE | 2017-07-30 09:31 | DIAGNOSTIC IMAGING REPORT ---
SINGLE VIEW CHEST CLINICAL HISTORY: Atypical chest pain. FINDINGS: An AP, portable, upright chest radiograph is compared to study dated 07/15/2017. The examination is degraded by portable technique and patient rotation. The cardiomediastinal silhouette is unremarkable. The lungs and pleural spaces are clear. No pneumothorax is seen. The bony thorax is grossly intact. Intraperitoneal free air is questioned below the right hemidiaphragm. IMPRESSION: 1. The lungs are clear. 2. Intraperitoneal free air is questioned below the right hemidiaphragm. Clinical correlation will be required. Consider decubitus abdominal radiograph or abdominal CT for further assessment. Electronically signed by: Ruben Hsu M.D. 07/30/2017 9:30 AM Dictated Date/Time: 07/30/2017 9:28 AM
--- NOTE | 2017-07-30 10:14 | Surgery Progress Note ---
Surgery Progress Note Date of Service July 30, 2017. Subjective pt underwent EGD with balloon dilation this am. having more pain than expected with radiation into shoulders/chest. clinically c/w disruption. appears to be free air on CXR. Objective Vital Signs: Date Time Temp Pulse Resp B/P (MAP) Pulse Ox O2 Delivery O2 Flow Rate FiO2 07/30/17 09:45 90 16 150/80 97 Room Air 07/30/17 09:35 88 16 146/86 100 Room Air 07/30/17 09:25 86 18 153/87 100 Room Air 07/30/17 09:15 88 18 147/89 94 Room Air 07/30/17 09:05 91 16 162/94 96 Room Air 07/30/17 08:55 100 16 157/90 99 Room Air 07/30/17 08:45 100 16 147/98 95 Room Air 07/30/17 08:35 90 16 145/85 96 Room Air 07/30/17 08:25 78 16 146/85 99 Room Air 07/30/17 08:15 80 16 107/85 99 Room Air 07/30/17 08:05 36.0 90 16 133/83 99 Oxymask 5 07/30/17 05:58 36.7 85 16 139/93 (108) 99 Room Air General Appearance: + moderate distress Abdomen: soft, + guarding, + tenderness Assessment & Plan suspect disruption of either ulcer or stricture. discussed options. will plan dx laparoscopy with intra-op egd/stent placement which I suspect she needs for the now chronic stricture anyway. will evaluate with laparoscopy and place drain. npo. discussed risks/options. pt ok to proceed.
[2017-07-30] MEDS ORDERED: HYDROmorphone INJ 0.5 MG/0.5 ML SYR IV PRN ×3 (10:15→18:15)
--- NOTE | 2017-07-30 10:49 | Anesthesiology Progress Note ---
Anesthesia Post Op Note Date & Time July 30, 2017 at 09:57 Vital Signs Pain Intensity: 6 Vital Signs Past 12 Hours Date Time Temp Pulse Resp B/P (MAP) Pulse Ox O2 Delivery O2 Flow Rate FiO2 07/30/17 09:45 90 16 150/80 97 Room Air 07/30/17 09:35 88 16 146/86 100 Room Air 07/30/17 09:25 86 18 153/87 100 Room Air 07/30/17 09:15 88 18 147/89 94 Room Air 07/30/17 09:05 91 16 162/94 96 Room Air 07/30/17 08:55 100 16 157/90 99 Room Air 07/30/17 08:45 100 16 147/98 95 Room Air 07/30/17 08:35 90 16 145/85 96 Room Air 07/30/17 08:25 78 16 146/85 99 Room Air 07/30/17 08:15 80 16 107/85 99 Room Air 07/30/17 08:05 36.0 90 16 133/83 99 Oxymask 5 07/30/17 05:58 36.7 85 16 139/93 (108) 99 Room Air Notes Mental Status: alert / awake / arousable, participated in evaluation Pt Amnestic to Procedure: Yes Nausea / Vomiting: adequately controlled Pain: improving with treatment, see Notes Airway Patency, RR, SpO2: stable & adequate BP & HR: stable & adequate Hydration State: stable & adequate Anesthetic Complications: no major complications apparent Pain out of control to procedure performed, and somewhat poorly responsive to treatment. Unfortunately, she gets very nauseated to narcotics and so opioid medications have been difficult to titrate to effect. The pain was epigastric and began radiating to the back. I did obtain a CXR to rule out an esophageal tear which showed a possible small amount of free air under the R hemidiaphragm. I spoke with Dr Arnold who will evaluate the patient and plans to obtain a CT scan. Further management will be pending the CT scan.
[2017-07-30] MEDS ORDERED: IV FLUIDS COMPLETED PRN ×2 (11:45→20:30)
[2017-07-30] MEDS: SODIUM CHLORIDE 0.9% 1000ML 1,000 ML IV SCH ×3 (12:21→23:14)
--- NOTE | 2017-07-30 13:50 | History & Physical Bridge Note ---
H&P Re-Evaluation Bridge Note: I have examined the patient, reviewed the History & Physical and in the interval since the performance of the History & Physical I have noted the following changes of clinical significance: suspect microperf from dilation earlier today. will plan stent placement followed by laparoscopy evaluated. discussed options/risks. questions answered.
[2017-07-30] MEDS ORDERED: HYDROmorphone INJ 1 MG/ML SYR IV PRN ×3 (15:00→17:15)
[2017-07-30] MEDS ORDERED: PROMETHAZINE HCL INJ 12.5 MG in SODIUM CHLORIDE 0.9% 50ML 50 ML IV PRN (15:00)
[2017-07-30] MEDS ORDERED: ROCURONIUM BROMIDE 10 MG/ML 5 ML VIAL ONE (15:09)
[2017-07-30] MEDS ORDERED: NEOSTIGMINE METHYLSULFATE 5 MG/5 ML SYR ONE (15:09)
[2017-07-30] MEDS ORDERED: DEXAMETHASONE SOD INJ 4 MG/ML VIAL ONE (15:09)
[2017-07-30] MEDS ORDERED: HYDROmorphone INJ 2 MG/ML SYR/VIAL ONE (15:09)
[2017-07-30] MEDS ORDERED: SUCCINYLCHOLINE CHLORIDE 20 MG/ML 10 ML VIAL IV ONE (15:09)
[2017-07-30] MEDS ORDERED: GLYCOPYRROLATE INJ 0.2 MG/ML VIAL ONE (15:09)
[2017-07-30] MEDS ORDERED: LARYING-O-JET KIT (LTA) ONE (15:09)
[2017-07-30] MEDS ORDERED: CEFAZOLIN SOD 1 GM VIAL ONE (15:09)
[2017-07-30] MEDS ORDERED: EpINEphrine INJ 1MG/ML AMP 1 MG/ML AMP ONE (15:17)
[2017-07-30] MEDS ORDERED: BUPIVACAINE 0.5 % 5 MG/1 ML MPF 30ML VIAL ONE (15:17)
--- NOTE | 2017-07-30 17:00 | [facility] Post Operative Brief Note ---
Immediate Operative Summary Operative Date July 30, 2017. 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
[2017-07-30] MEDS ORDERED: LORAZEPAM INJ 1 MG in SYRINGE 0.5 ML IV PRN (17:15)
--- NOTE | 2017-07-30 17:33 | [facility] Operative Report ---
Operative Report Operative Date July 30, 2017. 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 After successful intubation we began by attempting an EGD with stent placement. I performed the gastroscopy without difficulty. I was able to pass the scope through the strictured area. I did not see any endoscopic evidence of a disruption of the anastomosis. I Was able to get through the pylorus and the first and second part of the duodenum. I then passed a flexible guidewire through the pylorus and withdrew the gastroscope. We tried to pass an 8 cm partially covered stent down through the area of the stricture. After passing the stent to the point of resistance I then reintroduced the gastroscope and visually evaluated where it was located. There appeared to be a "shelf" just proximal to the area of the stricture that the stent itself was hanging up on. We were unable to manipulate through the area safely. At this point I aborted this technique. We prepped and draped the abdomen in sterile technique as we were prepared to perform a laparoscopy anyway. I scrubbed into the case and we made an incision through her previous supraumbilical incision. This was carried down through soft tissue and the anterior fascia opened with electrocautery. 2 #0 Vicryl stay sutures were placed. Peritoneum was elevated with hemostats and incised under direct vision using a Metzenbaum scissor. A Finger sweep was performed. A 12 mm Vang trocar was placed and the abdomen was insufflated to 18 mmHg. Laparoscope was inserted. A subxiphoid 5 mm port which would later be converted to a 12 port was placed. A right upper quadrant 5 mm port was also placed through her prior incision. The patient was placed in reverse Trendelenburg position. When we elevated the left lobe of the liver we noted that the gastric pouch was tightly adhesed to the anterior abdominal wall as well as the liver itself. We did not notice any free abdominal fluid or obvious sign of a disrupted anastomosis. It was very thick tissue and I was concerned that the anterior surface of the stomach was possibly involved and I therefore decided to use a DANISHA stapler to take down this very thick adhesive band. A purple cartridge 60 mm stapler was used to fire across this which released it from the anterior abdominal wall. This dramatically released tension on the pouch and anastomosis itself. At this point I scrubbed back out of the case and re-perform the endoscopy. Now with some assistance intra-abdominally from my PA I was able to rather easily advance the stent through the area of the stricture. Under direct visualization we were able to deploy the stent. The stent was deployed nicely from several inches proximal to the stricture through the stricture and opened distal to the stricture. It was in good position and I passed the scope back and forth several times. I passed the scope through the pylorus as well. There was no other abnormalities identified and I subsequently removed the gastroscope. Again it was an 8 cm partially covered stent. After removing the gastroscope I then re-scrubbed back into the abdomen. We did insufflate the pouch and anastomosis under fluid and there was no evidence of an anastomotic disruption. I did perform a thorough irrigation so no other abnormalities. To be on the safe side I did place a 10 flat Eleazar-Williamson drain in the left upper quadrant brought out through 1 of the trocar sites and secured with 2-0 nylon. Trochars were then all removed and the abdomen desufflated. The fascia the camera port was closed using 0 Vicryl [id number] fashion. All the wounds were irrigated and closed using 4-0 Monocryl. Marcaine was injected around them for postoperative analgesia and skin glue used as a dressing. The patient was awaken x-rayed and transferred to recovery in stable condition. My physician's assistants were present throughout the entire case. They helped prep the patient. They helped with exposure for trocar placement. They helped run the camera and manipulate intra-abdominal organs for better visualization. They then helped with wound closure at the end of the case and dressing placement. I attest to the content of the Intraoperative Record and any orders documented therein. Any exceptions are noted below.
[2017-07-30] MEDS ORDERED: AMPICILLIN/SULBACTAM SOD INJ 3,000 MG in SODIUM CHLORIDE 0.9% 100ML 100 ML IV SCH (18:00)
--- NOTE | 2017-07-30 18:03 | Anesthesiology Progress Note ---
Anesthesia Post Op Note Date & Time July 30, 2017 at 18:03 Vital Signs Pain Intensity: 6 Vital Signs Past 12 Hours Date Time Temp Pulse Resp B/P (MAP) Pulse Ox O2 Delivery O2 Flow Rate FiO2 07/30/17 18:00 84 20 147/85 96 Room Air 07/30/17 17:50 66 20 169/83 96 Room Air 07/30/17 17:40 82 20 146/97 95 Room Air 07/30/17 17:30 105 20 168/94 100 Oxymask 10 07/30/17 17:20 99 20 158/94 100 Oxymask 10 07/30/17 17:13 36.1 105 20 166/98 100 Oxymask 10 07/30/17 12:14 36.7 78 16 132/84 (100) 99 Room Air 07/30/17 11:30 78 16 134/77 (96) 97 Room Air 07/30/17 11:00 97 Room Air 07/30/17 11:00 Room Air 07/30/17 10:55 95 16 138/89 98 Room Air 07/30/17 10:45 36.3 94 16 138/91 98 Room Air 07/30/17 10:35 98 16 137/90 96 Room Air 07/30/17 10:25 98 16 130/84 96 Room Air 07/30/17 10:15 98 14 127/83 94 Room Air 07/30/17 10:05 95 14 140/86 95 Room Air 07/30/17 09:55 84 14 144/91 97 Room Air 07/30/17 09:45 90 16 150/80 97 Room Air 07/30/17 09:35 88 16 146/86 100 Room Air 07/30/17 09:25 86 18 153/87 100 Room Air 07/30/17 09:15 88 18 147/89 94 Room Air 07/30/17 09:05 91 16 162/94 96 Room Air 07/30/17 08:55 100 16 157/90 99 Room Air 07/30/17 08:45 100 16 147/98 95 Room Air 07/30/17 08:35 90 16 145/85 96 Room Air 07/30/17 08:25 78 16 146/85 99 Room Air 07/30/17 08:15 80 16 107/85 99 Room Air 07/30/17 08:05 36.0 90 16 133/83 99 Oxymask 5 Notes Mental Status: alert / awake / arousable, participated in evaluation Pt Amnestic to Procedure: Yes Nausea / Vomiting: adequately controlled Pain: adequately controlled Airway Patency, RR, SpO2: stable & adequate BP & HR: stable & adequate Hydration State: stable & adequate Anesthetic Complications: no major complications apparent
[2017-07-30] MEDS ORDERED: ONDANSETRON INJ 2 MG/ML 2 ML VIAL IV ONE (19:15)
[2017-07-30] MEDS: CEFAZOLIN IV 1,000 MG in SYRINGE 0 ML IV SCH (19:37)
[2017-07-30] MEDS ORDERED: NALOXONE HCL 0.4 MG/1 ML VIAL/CARP IV PRN (22:30)
[2017-07-30] MEDS: ACETAMINOPHEN IV 1,000 MG in EMPTY BAG 0 ML IV SCH (23:15)
[2017-07-31] VITALS (9 sets, daily range): BP systolic 119–150; BP diastolic 71–90; PULSE 58–82; TEMP 36.4–36.7; O2SAT 95–99
[2017-07-31] MEDS: HYDROmorphone HCL 0.5MG/ML 50 ML CASSETTE IV PRN ×4 (00:28→23:23)
[2017-07-31] MEDS: CEFAZOLIN IV 1,000 MG in SYRINGE 0 ML IV SCH ×2 (02:21→10:30)
[2017-07-31 02:28] LABS: HEMATOCRIT 36.5 % (37-47); HEMOGLOBIN 12.1 g/dL (12.0-16.0); IG# 0.02 K/uL (0.00-0.02); LYMPH % 8.6 %; LYMPH ABS # 0.92 K/uL (1.2-3.4); MEAN CELL VOLUME 86.9 fL (80-100); MEAN CORPUSCULAR HEMOGLOBIN 28.8 pg (25-34); MEAN PLATELET VOLUME 10.2 fL (7.4-10.4); MONO % 2.9 %; MONO ABS # 0.31 K/uL (0.11-0.59); NEUT % 88.3 %; NEUT ABS # 9.46 K/uL (1.4-6.5); PLATELET COUNT 232 K/uL (130-400); RED CELL DISTRIBUTION WIDTH CV 15.6 % (11.5-14.5); RED CELL DISTRIBUTION WIDTH SD 49.9 fL (36.4-46.3); WHITE BLOOD COUNT 10.71 K/uL (4.8-10.8)
[2017-07-31 02:32] LABS: MEAN CORPUSCULAR HGB CONC 33.2 g/dl (32-36)
[2017-07-31] MEDS ORDERED: HYDROmorphone INJ 2 MG/ML SYR/VIAL IV STA (02:54)
[2017-07-31] MEDS ORDERED: LORAZEPAM 0.5 MG TAB PO PRN (04:00)
[2017-07-31] MEDS ORDERED: HydrALAZINE HCL 20 MG/ML VIAL IV. PRN (04:15)
[2017-07-31] MEDS: ACETAMINOPHEN IV 1,000 MG in EMPTY BAG 0 ML IV SCH ×3 (06:12→21:42)
--- NOTE | 2017-07-31 06:48 | DIAGNOSTIC IMAGING REPORT ---
CHEST ONE VIEW PORTABLE CLINICAL HISTORY: Atypical chest pain. Shortness of breath. Crepitus. COMPARISON STUDY: 07/30/2017 FINDINGS: The cardiac and mediastinal contours remain stable. There is no failure. Linear opacities the left lung base are consistent with subsegmental atelectatic changes. There is a left upper quadrant surgical drain and expandable stent. There is a small amount of free air beneath the right hemidiaphragm versus colonic interposition. This finding remains unchanged the preceding study.[ IMPRESSION: 1. Linear left basilar atelectatic changes 2. Postsurgical changes within the left upper quadrant of the abdomen 3. Trace free intraperitoneal air versus colonic interposition. This finding remains unchanged from the preceding study Electronically signed by: Efrain Yusuf M.D. 07/31/2017 6:47 AM Dictated Date/Time: 07/31/2017 6:45 AM
--- NOTE | 2017-07-31 06:54 | Surgery Progress Note ---
Surgery Progress Note Date of Service July 31, 2017. 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 Patient continued to have pain despite new analgesic regimen. Notified last night that patient was having SOB and uncontrolled pain. CXR and CBC ordered at this time. Patient remained stable, vitals WNL. SOB resolved. 1mg dilaudid IV push added. Patient now reports her pain as controlled. Patient reports dressing changed by Dr. Olivas at 0400. Objective Vital Signs: Date Time Temp Pulse Resp B/P (MAP) Pulse Ox O2 Delivery O2 Flow Rate FiO2 07/31/17 04:27 36.5 60 16 119/77 (91) 96 Room Air 07/31/17 03:34 36.4 65 16 150/90 (110) 99 Nasal Cannula 2.0 07/31/17 02:35 36.5 60 16 120/77 (91) 99 Room Air 07/31/17 01:32 36.4 82 16 122/71 (88) 99 Room Air 07/31/17 00:30 36.4 60 16 134/84 (101) 95 Room Air 07/30/17 22:52 36.4 65 16 128/80 (96) 98 Room Air 07/30/17 21:33 36.3 69 16 116/79 (91) 98 Room Air 07/30/17 20:22 36.3 65 16 118/78 (91) 96 Room Air 07/30/17 19:28 36.3 65 16 121/75 (90) 98 Room Air 07/30/17 18:25 Nasal Cannula 2.0 07/30/17 18:25 99 Nasal Cannula 2.0 07/30/17 18:00 84 20 147/85 96 Room Air 07/30/17 17:50 66 20 169/83 96 Room Air 07/30/17 17:40 82 20 146/97 95 Room Air 07/30/17 17:30 105 20 168/94 100 Oxymask 10 07/30/17 17:20 99 20 158/94 100 Oxymask 10 07/30/17 17:13 36.1 105 20 166/98 100 Oxymask 10 07/30/17 12:14 36.7 78 16 132/84 (100) 99 Room Air 07/30/17 11:30 78 16 134/77 (96) 97 Room Air 07/30/17 11:00 97 Room Air 07/30/17 11:00 Room Air 07/30/17 10:55 95 16 138/89 98 Room Air 07/30/17 10:45 36.3 94 16 138/91 98 Room Air 07/30/17 10:35 98 16 137/90 96 Room Air 07/30/17 10:25 98 16 130/84 96 Room Air 07/30/17 10:15 98 14 127/83 94 Room Air 07/30/17 10:05 95 14 140/86 95 Room Air 07/30/17 09:55 84 14 144/91 97 Room Air 07/30/17 09:45 90 16 150/80 97 Room Air 07/30/17 09:35 88 16 146/86 100 Room Air 07/30/17 09:25 86 18 153/87 100 Room Air 07/30/17 09:15 88 18 147/89 94 Room Air 07/30/17 09:05 91 16 162/94 96 Room Air 07/30/17 08:55 100 16 157/90 99 Room Air 07/30/17 08:45 100 16 147/98 95 Room Air 07/30/17 08:35 90 16 145/85 96 Room Air 07/30/17 08:25 78 16 146/85 99 Room Air 07/30/17 08:15 80 16 107/85 99 Room Air 07/30/17 08:05 36.0 90 16 133/83 99 Oxymask 5 07/30/17 05:58 36.7 85 16 139/93 (108) 99 Room Air Physical Exam: MELLY drainage (30ml/25ml, serosang) General Appearance: WD/WN, no apparent distress Head: normocephalic, atraumatic Neck: trachea midline Respiratory/Chest: no respiratory distress, no accessory muscle use Abdomen: non distended, soft, no organomegaly, + tenderness (LUQ, Epigastric incisional) Incision(s): clean, dry, intact Laboratory Results: Results Past 24 Hours Test 07/31/17 02:05 07/31/17 04:44 Range/Units White Blood Count 10.71 4.8-10.8 K/uL Red Blood Count 4.20 4.2-5.4 M/uL Hemoglobin 12.1 12.0-16.0 g/dL Hematocrit 36.5 37-47 % Mean Corpuscular Volume 86.9 80-100 fL Mean Corpuscular Hemoglobin 28.8 25-34 pg Mean Corpuscular Hemoglobin Concent 33.2 32-36 g/dl Platelet Count 232 130-400 K/uL Mean Platelet Volume 10.2 7.4-10.4 fL Neutrophils (%) (Auto) 88.3 % Lymphocytes (%) (Auto) 8.6 % Monocytes (%) (Auto) 2.9 % Eosinophils (%) (Auto) 0.0 % Basophils (%) (Auto) 0.0 % Neutrophils # (Auto) 9.46 1.4-6.5 K/uL Lymphocytes # (Auto) 0.92 1.2-3.4 K/uL Monocytes # (Auto) 0.31 0.11-0.59 K/uL Eosinophils # (Auto) 0.00 0-0.5 K/uL Basophils # (Auto) 0.00 0-0.2 K/uL RDW Standard Deviation 49.9 36.4-46.3 fL RDW Coefficient of Variation 15.6 11.5-14.5 % Immature Granulocyte % (Auto) 0.2 % Immature Granulocyte # (Auto) 0.02 0.00-0.02 K/uL Assessment & Plan POD #1 s/p Diagnostic Laparoscopy with endolysis, Intra-Operative Esophagogastroduodenoscopy with Stent Placement Pain overnight, now controlled. Abdomen soft, non-distended, tender in LUQ and epigastric area. Urinating okay. Am labs pending. Continue NPO except meds. Continue dilaudid SENIOR TEST ANALYST, IV Tylenol and Ativan PRN. OOB as tolerated. May need to stay another day depending on how she progresses with diet and pain control. Will discuss findings with Dr. Arnold. Please contact with questions or concerns.
[2017-07-31 07:20] LABS: BASO % 0.1 %; BASO ABS # 0.01 K/uL (0-0.2); EOS % 0.1 %; EOS ABS # 0.01 K/uL (0-0.5); HEMATOCRIT 34.6 % (37-47); HEMOGLOBIN 11.4 g/dL (12.0-16.0); IG# 0.03 K/uL (0.00-0.02); LYMPH % 11.9 %; LYMPH ABS # 1.34 K/uL (1.2-3.4); MEAN CELL VOLUME 86.9 fL (80-100); MEAN CORPUSCULAR HEMOGLOBIN 28.6 pg (25-34); MEAN CORPUSCULAR HGB CONC 32.9 g/dl (32-36); MEAN PLATELET VOLUME 10.4 fL (7.4-10.4); MONO % 5.7 %; MONO ABS # 0.64 K/uL (0.11-0.59); NEUT % 81.9 %; NEUT ABS # 9.23 K/uL (1.4-6.5); PLATELET COUNT 237 K/uL (130-400); RED CELL DISTRIBUTION WIDTH CV 15.4 % (11.5-14.5); RED CELL DISTRIBUTION WIDTH SD 49.2 fL (36.4-46.3); WHITE BLOOD COUNT 11.26 K/uL (4.8-10.8)
--- NOTE | 2017-07-31 07:48 | Anesthesiology Progress Note ---
Anesthesia Post Op Note Date & Time July 31, 2017 at 07:46 Vital Signs Vital Signs Past 12 Hours Date Time Temp Pulse Resp B/P (MAP) Pulse Ox O2 Delivery O2 Flow Rate FiO2 07/31/17 07:40 36.5 72 16 138/85 (102) 95 Room Air 07/31/17 04:27 36.5 60 16 119/77 (91) 96 Room Air 07/31/17 03:34 36.4 65 16 150/90 (110) 99 Nasal Cannula 2.0 07/31/17 02:35 36.5 60 16 120/77 (91) 99 Room Air 07/31/17 01:32 36.4 82 16 122/71 (88) 99 Room Air 07/31/17 00:30 36.4 60 16 134/84 (101) 95 Room Air 07/30/17 22:52 36.4 65 16 128/80 (96) 98 Room Air 07/30/17 21:33 36.3 69 16 116/79 (91) 98 Room Air 07/30/17 20:22 36.3 65 16 118/78 (91) 96 Room Air Notes Mental Status: alert / awake / arousable, participated in evaluation Pt Amnestic to Procedure: Yes Nausea / Vomiting: adequately controlled, improving with treatment, see Notes Pain: adequately controlled Airway Patency, RR, SpO2: stable & adequate BP & HR: stable & adequate Hydration State: stable & adequate Anesthetic Complications: no major complications apparent Patient reported having dry heaves last night but no emesis. Nausea is well controlled at this time and symptoms have subsided.
[2017-07-31 07:53] LABS: CALCIUM 8.8 mg/dl (8.5-10.1); CREATININE 0.53 mg/dl (0.60-1.20); POTASSIUM 3.6 mmol/L (3.5-5.1)
[2017-07-31] MEDS: SODIUM CHLORIDE 0.9% 1000ML 1,000 ML IV SCH ×4 (08:11→23:55)
--- NOTE | 2017-07-31 09:39 | SURGERY PROGRESS NOTE ---
DATE: 07/31/2017 Rosita was having some chest pain and tells she was short of breath. We obtained a chest x-ray which showed as expected pneumoperitoneum from recent surgery. I do not see any esophageal or air in the mediastinum and no pneumothorax. I examined Rosita. She has some probably residual subcutaneous emphysema in the upper chest area, very minimal. She was resting comfortably at this time. She was recently medicated although she stated she was short of breath. Her last vitals showed a temperature of 36.4, pulse 65, respirations 16, blood pressure 150/90, O2 sats 99 on 2 L. The abdomen is completely benign. She expected tenderness from recent surgery. The dressing around the Eleazar-Williamson drain was slightly bloody. We changed it. The contents of the drain itself was serosanguineous. No succus entericus. At this point, I reassured the patient that she was doing fine overall and the things have gone well. I will increase her IV fluids about 125. The nurses reported when she urinated, her urine was concentrated. She denies any burning with urination. Also of note, her pulse ox was 99 on 2 L. [facility]
[2017-07-31] MEDS: PANTOprazole INJ 40 MG in SYRINGE 0 ML IV SCH (10:30)
--- NOTE | 2017-07-31 12:01 | DIAGNOSTIC IMAGING REPORT ---
GI SERIES W/O KUB CLINICAL HISTORY: 47 years-old Female presenting with s/p stent gastric stent placement. . TECHNIQUE: A standard air contrast barium esophagram is performed. Multiple spot images of the esophagus are acquired both upright and prone. COMPARISON: 04/29/2017. FINDINGS: The patient was able to ingest barium though this resulted and dry heaving. No holdup of contrast at the gastroesophageal junction. A stent is visualized in the gastric body. Contrast passes freely through the stent lumen into the gastric antrum. The stomach appears diminutive. There is no evidence of leak or holdup. Contrast passes into the duodenum and proximal jejunum. A Eleazar-Williamson drain is again visualized in the left upper quadrant unchanged since April. Fluoroscopy dosage (mGy): Not available. Fluoroscopy time: 2.6 minutes. Number of fluoroscopic spot images: 16. IMPRESSION: Post procedure changes with a patent gastric stent. No evidence of leak or holdup of contrast. Electronically signed by: Dale Zarate M.D. 07/31/2017 11:57 AM Dictated Date/Time: 07/31/2017 11:48 AM
[2017-07-31] MEDS: LORAZEPAM 0.5 MG TAB PO PRN ×2 (12:38→20:15)
[2017-07-31] MEDS: ONDANSETRON INJ 2 MG/ML 2 ML VIAL IV PRN (12:42)
[2017-07-31] MEDS ORDERED: NURSING VERBAL MED ORDER ONE (23:00)
[2017-07-31] MEDS ORDERED: LORAZEPAM 0.5 MG TAB PO STA (23:00)
[2017-08-01] VITALS (7 sets, daily range): BP systolic 112–141; BP diastolic 70–79; PULSE 53–65; TEMP 36.4–36.8; O2SAT 96–99
[2017-08-01] MEDS: LORAZEPAM 0.5 MG TAB PO PRN ×3 (03:28→19:59)
[2017-08-01] MEDS: ACETAMINOPHEN IV 1,000 MG in EMPTY BAG 0 ML IV SCH ×3 (05:56→22:02)
--- NOTE | 2017-08-01 06:55 | Surgery Progress Note ---
Surgery Progress Note Date of Service August 01, 2017. Subjective Post OP Day: 2 + feeling well, + flatus, + pain controlled, + using SPONSORSHIP MANAGER, + diet (Tolerating clears. ), No chest pain, No SOB, No bowel movement, No nausea, No vomiting Patient reports some belching/burping with liquid intake, reports her throat feels somewhat sore with intake as well. Objective Vital Signs: Date Time Temp Pulse Resp B/P (MAP) Pulse Ox O2 Delivery O2 Flow Rate FiO2 08/01/17 03:27 36.8 53 15 122/77 (92) 96 Room Air 07/31/17 23:55 Room Air 07/31/17 23:23 36.7 58 15 127/79 (95) 96 Room Air 07/31/17 16:30 Room Air 07/31/17 15:09 36.7 62 17 130/83 (99) 98 Room Air 07/31/17 12:19 36.7 67 16 138/80 (99) 97 Room Air 07/31/17 08:00 Room Air 07/31/17 07:40 36.5 72 16 138/85 (102) 95 Room Air Physical Exam: MELLY drainage (65ml/50ml, serosang) General Appearance: WD/WN, no apparent distress Head: normocephalic, atraumatic Respiratory/Chest: no respiratory distress, no accessory muscle use Abdomen: soft, no organomegaly, + distended (mild), + tenderness (LUQ, epigastric incisional (expected)) Incision(s): clean, dry, intact Laboratory Results: Results Past 24 Hours Test 07/31/17 07:05 07/31/17 09:30 Range/Units White Blood Count 11.26 4.8-10.8 K/uL Red Blood Count 3.98 4.2-5.4 M/uL Hemoglobin 11.4 12.0-16.0 g/dL Hematocrit 34.6 37-47 % Mean Corpuscular Volume 86.9 80-100 fL Mean Corpuscular Hemoglobin 28.6 25-34 pg Mean Corpuscular Hemoglobin Concent 32.9 32-36 g/dl Platelet Count 237 130-400 K/uL Mean Platelet Volume 10.4 7.4-10.4 fL Neutrophils (%) (Auto) 81.9 % Lymphocytes (%) (Auto) 11.9 % Monocytes (%) (Auto) 5.7 % Eosinophils (%) (Auto) 0.1 % Basophils (%) (Auto) 0.1 % Neutrophils # (Auto) 9.23 1.4-6.5 K/uL Lymphocytes # (Auto) 1.34 1.2-3.4 K/uL Monocytes # (Auto) 0.64 0.11-0.59 K/uL Eosinophils # (Auto) 0.01 0-0.5 K/uL Basophils # (Auto) 0.01 0-0.2 K/uL RDW Standard Deviation 49.2 36.4-46.3 fL RDW Coefficient of Variation 15.4 11.5-14.5 % Immature Granulocyte % (Auto) 0.3 % Immature Granulocyte # (Auto) 0.03 0.00-0.02 K/uL Sodium Level 139 136-145 mmol/L Potassium Level 3.6 3.5-5.1 mmol/L Chloride Level 106 98-107 mmol/L Carbon Dioxide Level 25 21-32 mmol/L Anion Gap 8.0 3-11 mmol/L Blood Urea Nitrogen 10 7-18 mg/dl Creatinine 0.53 0.60-1.20 mg/dl Est Creatinine Clear Calc Drug Dose 152.0 ml/min Estimated GFR () 129.2 Estimated GFR (Non- 111.5 BUN/Creatinine Ratio 18.6 10-20 Random Glucose 96 70-99 mg/dl Calcium Level 8.8 8.5-10.1 mg/dl Urine Color DK YELLOW Urine Appearance TURBID CLEAR Urine pH 5.5 4.5-7.5 Urine Specific [place] 1.031 1.000-1.030 Urine Protein TRACE NEG Urine Glucose (UA) NEG NEG Urine Ketones 2+ NEG Urine Occult Blood 3+ NEG Urine Nitrite NEG NEG Urine Bilirubin NEG NEG Urine Urobilinogen NEG NEG Urine Leukocyte Esterase MODERATE NEG Urine WBC (Auto) >30 0-5 /hpf Urine RBC (Auto) >30 0-4 /hpf Urine Hyaline Casts (Auto) 1-5 0-5 /lpf Urine Epithelial Cells (Auto) 10-20 0-5 /lpf Urine Bacteria (Auto) NEG NEG Assessment & Plan POD #2 s/p Diagnostic Laparoscopy with endolysis, Intra-Operative Esophagogastroduodenoscopy with Stent Placement Doing much better today. Pain controlled, Abdomen soft, mildly distended. Tolerating clears, No N/V. Urinating okay. UGI reviewed showing no evidence of leak or obstruction, stent patent. Patient was having increased anxiety last night - ativan increased to 1mg Q4HWA PRN - resolved. Does report a sore throat and some belching/burping through the night with liquid intake -expected s/p stent placement. Keep clears for now, continue SPONSORSHIP MANAGER, keep MELLY, OOB as tolerated. Please contact with questions or concerns. POD #1 s/p Diagnostic Laparoscopy with endolysis, Intra-Operative Esophagogastroduodenoscopy with Stent Placement Pain overnight, now controlled. Abdomen soft, non-distended, tender in LUQ and epigastric area. Urinating okay. Am labs pending. Continue NPO except meds. Continue dilaudid SPONSORSHIP MANAGER, IV Tylenol and Ativan PRN. OOB as tolerated. May need to stay another day depending on how she progresses with diet and pain control. Will discuss findings with Dr. Arnold. Please contact with questions or concerns.
[2017-08-01] MEDS: HYDROmorphone HCL 0.5MG/ML 50 ML CASSETTE IV PRN ×3 (07:00→14:53)
[2017-08-01] MEDS ORDERED: HYDR1SOL10 PO ×3 (08:15→09:32)
[2017-08-01] MEDS: SODIUM CHLORIDE 0.9% 1000ML 1,000 ML IV SCH ×2 (08:25→16:41)
[2017-08-01] MEDS: PANTOprazole INJ 40 MG in SYRINGE 0 ML IV SCH (10:51)
[2017-08-01] MEDS: ONDANSETRON INJ 2 MG/ML 2 ML VIAL IV PRN (11:19)
[2017-08-01] MEDS ORDERED: HYDROmorphone INJ 0.5 MG/0.5 ML SYR IV PRN (19:45)
[2017-08-01] MEDS ORDERED: HYDROCODONE/ACETAMIN 5/325MG TAB PO PRN ×2 (19:45)
[2017-08-02] MEDS: SODIUM CHLORIDE 0.9% 1000ML 1,000 ML IV SCH ×3 (00:33→14:59)
[2017-08-02] MEDS: HYDROmorphone INJ 0.5 MG/0.5 ML SYR IV PRN ×2 (00:35→04:35)
[2017-08-02] MEDS: ACETAMINOPHEN IV 1,000 MG in EMPTY BAG 0 ML IV SCH ×2 (05:15→14:00)
--- NOTE | 2017-08-02 07:06 | Surgery Progress Note ---
Surgery Progress Note Date of Service August 02, 2017. Subjective Post OP Day: 3 + feeling well, + complaints (Still having some mild spasms with swallowing), + flatus, + pain controlled, + diet (Tolerating full liquids), No bowel movement, No nausea, No vomiting Dilaudid CARGO AND RAMP SERVICES MANAGER d/c last evening, replaced with PO norco and IV dilaudid for breakthrough pain. Pain controlled overnight. Objective Vital Signs: Date Time Temp Pulse Resp B/P (MAP) Pulse Ox O2 Delivery O2 Flow Rate FiO2 08/02/17 00:30 Room Air 08/01/17 23:03 36.7 61 16 141/70 (93) 99 Room Air 08/01/17 19:23 36.4 58 16 123/78 (93) 99 Room Air 08/01/17 16:40 Room Air 08/01/17 15:00 36.4 65 16 118/79 (92) 97 Room Air 08/01/17 11:37 36.7 57 20 116/72 (87) 97 Room Air 08/01/17 08:42 96 Room Air 08/01/17 08:15 Room Air 08/01/17 07:54 36.8 53 20 112/71 (85) 96 Nasal Cannula Physical Exam: MELLY drainage (125ml/60ml, serosang) General Appearance: WD/WN, no apparent distress Head: normocephalic, atraumatic Respiratory/Chest: no respiratory distress, no accessory muscle use Abdomen: non distended, soft, no organomegaly, + tenderness (mild, incisional) Incision(s): clean, dry, intact Assessment & Plan POD #3 s/p Diagnostic Laparoscopy with endolysis, Intra-Operative Esophagogastroduodenoscopy with Stent Placement Doing well. 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 Tolerating full liquids, no N/ V. Urinating without issue. Patient would like to keep full liquids for now, ADAT. Continue pain management, try to encourage PO analgesics. OOB as tolerated. Probable d/c today if she continues to do well. Will discuss findings with Dr. Arnold. Please contact with questions or concerns. POD #2 s/p Diagnostic Laparoscopy with endolysis, Intra-Operative Esophagogastroduodenoscopy with Stent Placement Doing much better today. Pain controlled, Abdomen soft, mildly distended. Tolerating clears, No N/V. Urinating okay. UGI reviewed showing no evidence of leak or obstruction, stent patent. Patient was having increased anxiety last night - ativan increased to 1mg Q4HWA PRN - resolved. Does report a sore throat and some belching/burping through the night with liquid intake -expected s/p stent placement. Keep clears for now, continue CARGO AND RAMP SERVICES MANAGER, keep MELLY, OOB as tolerated. Please contact with questions or concerns.
[2017-08-02 07:40] VITALS: BP 140/94; PULSE 70; TEMP 36.7; O2SAT 97
[2017-08-02] MEDS ORDERED: ACETAMINOPHEN/HYDROCODONE ELIX 15 ML/CUP UDP PO PRN (08:15)
[2017-08-02] MEDS: PANTOprazole INJ 40 MG in SYRINGE 0 ML IV SCH (11:26)
[2017-08-02 11:36] VITALS: BP 140/94; PULSE 70; TEMP 36.7; O2SAT 97
== END 2017-08-02 15:23 | disposition home or self-care (01) | DRG 328 ==
LOC: C.ACU 05:34 → C.MSN 10:15 → ENRESERV 10:38 → OBSVTOIN 07-31 08:04
PROVIDERS: ADMIT Surgery; ATTEND Surgery
PROC: 0DN64ZZ Release Stomach, Percutaneous Endoscopic Approach (ICD-10-PCS; principal; 2017-07-30 06:30)
PROC: 0D748DZ Dilation of Esophagogastric Junction with Intraluminal Device, Via Natural or Artificial Opening Endoscopic (ICD-10-PCS; principal; 2017-07-30 06:30)
PROC: 0D748ZZ Dilation of Esophagogastric Junction, Via Natural or Artificial Opening Endoscopic (ICD-10-PCS; 2017-07-30 06:30)
DX: K95.89 Other complications of other bariatric procedure (principal); K22.2 Esophageal obstruction; K28.7 Chronic gastrojejunal ulcer without hemorrhage or perforation; K66.0 Peritoneal adhesions (postprocedural) (postinfection); F41.9 Anxiety disorder, unspecified; Z79.899 Other long term (current) drug therapy; Z87.19 Personal history of other diseases of the digestive system; Z98.890 Other specified postprocedural states; Z88.5 Allergy status to narcotic agent; Z88.8 Allergy status to other drugs, medicaments and biological substances; Z91.040 Latex allergy status; Y83.2 Surgical operation with anastomosis, bypass or graft as the cause of abnormal reaction of the patient, or of later complication, without mention of misadventure at the time of the procedure; Y99.8 Other external cause status